=== PATIENT | female | born 1955 | race Caucasian/White ===

== ENCOUNTER → 2019-10-22 14:41 | Outpatient (CLI) | payer MEDICARE, SELFPAY ==
--- NOTE | ~2019-10-22 | XR_ITS ---
EXAMINATION: XR knee RT 3V DATE: 10/22/2019 15:00 INDICATION: Unspecified injury of right lower leg, initial encounter. Right knee pain. TECHNIQUE: 3 views of right knee were obtained. COMPARISON: None. FINDINGS: Bone alignment is normal. No fracture. There is mild osteoarthritis of medial and patellofe moral compartments. There is a small knee joint effusion. IMPRESSION: 1. Mild right knee osteoarthritis. 2. Small right knee joint effusion. Reviewed, dictated and finalized at location A. WELL OPERATOR
== END ==
PROVIDERS: PCP Family Medicine; Visit Provider Physician Assistant
DX: S89.91XA Unspecified injury of right lower leg, initial encounter (principal); X58.XXXA Exposure to other specified factors, initial encounter; M17.11 Unilateral primary osteoarthritis, right knee; M25.461 Effusion, right knee
CPT/HCPCS: 73562

== ENCOUNTER → 2019-10-30 10:36 | Outpatient (CLI) | payer MEDICARE, SELFPAY ==
--- NOTE | ~2019-10-30 | MR_ITS ---
EXAMINATION: MR knee RT wo con DATE: 10/30/2019 11:35 INDICATION: Right knee pain. Unspecified injury of right lower leg, initial encounter. TECHNIQUE: Magnetic resonance imaging (MRI) of the right knee was performed without intravenous contr ast. Sequences included axial PD-weighted FS FSE, coronal PD-weighted FSE and PD-weighted FS FSE, sag ittal PD-weighted FSE, and sagittal T2-weighted FS FSE. COMPARISON: Right knee radiographs 10/22/2019 FINDINGS: Medial compartment: There is a complex tear of posterior horn of medial meniscus. There is shallow partial-thickness cart ilage loss of tibial condyle and femoral condyle with mild subchondral edema-like marrow signal inten sity. Marginal osteophytes are noted. Lateral compartment: Lateral meniscus is normal. Lateral compartment cartilage is normal. Patellofemoral compartment: There is full-thickness cartilage loss of patellar median ridge and medial facet with mild subchondra l edema-like marrow signal intensity. There is partial-thickness cartilage loss of patellar lateral f acet. There is partial-thickness cartilage loss of central and medial trochlea with mild subchondral edema-like marrow signal intensity. Osteophytes are noted. Ligaments and tendons: The anterior and posterior cruciate ligaments are normal. There are changes of prior sprains of media l collateral ligament and fibular collateral ligament characterized by increased signal intensity pro ximally. There is mild patellar tendinopathy. Fluid: There is a small knee joint effusion. There is a large multiloculated Ann's cyst. There is mild sup erficial infrapatellar bursitis. IMPRESSION: 1. Severe chondrosis of patellofemoral compartment and mild chondrosis of medial compartment. 2. Tear of medial meniscus. 3. Small knee joint effusion. 4. Large multiloculated Ann's cyst. Reviewed, dictated and finalized at location A. DIVING TEACHER IMPRESSION: 1. Severe chondrosis of patellofemoral compartment and mild chondrosis of media l compartment. 2. Tear of medial meniscus. 3. Small knee joint effusion. 4. Large multiloculated Ann's cyst.
== END ==
PROVIDERS: PCP Family Medicine; Visit Provider Physician Assistant
DX: S83.241A Other tear of medial meniscus, current injury, right knee, initial encounter (principal); M25.461 Effusion, right knee; M71.21 Synovial cyst of popliteal space [Baker], right knee; X58.XXXA Exposure to other specified factors, initial encounter
CPT/HCPCS: 73721

== ENCOUNTER → 2019-11-02 07:49 | Outpatient (CLI) | payer MEDICARE, SELFPAY ==
--- NOTE | ~2019-11-02 | MMUS_ITS ---
. EXAMINATION: MM diagnostic yajaira RT w leander, US breast RT complete HISTORY: Probably benign right breast masses TECHNIQUE: ML, MLO and cc 3-D tomosynthesis images of the right breast were performed and synthetic 2 -D images were generated. CAD analysis was submitted and interpreted. High resolution complete right breast ultrasound was performed. COMPARISON: 05/04/2019 diagnostic right digital mammogram and limited right breast ultrasound 04/27/2019 bilateral digital screening mammogram 04/03/2018 bilateral digital screening mammogram BREAST PARENCHYMAL COMPOSITION: The breasts are heterogeneously dense, which may obscure small masses . FINDINGS: MAMMOGRAPHIC FINDINGS: There are scattered benign microcalcifications. No interval mass or developing density, architectural distortion, malignant calcification, skin thickening or retraction is detected. ULTRASOUND: 2:00 2 cm from nipple: 2 mm sonolucency without shadowing, benign in appearance 4:00 4 cm from nipple: Parallel circumscribed hypoechoic 2.4 x 6 mm hypoechoic lesion without interna l vascularity or posterior shadowing 6:00 3 cm from nipple: 3.5 x 3.6 x 5.2 mm simple cyst with through transmission and posterior enhance ment 8:00 5 cm from nipple: 2.7 x 3.4 x 4.3 mm simple cyst 9:00 7 cm from nipple: 4.5 x 5.4 simple cyst 9:00 7 cm from nipple: 3.1 x 3.5 mm simple cyst 10:00 7 cm from nipple: Parallel circumscribed septated 3 x 4.2 x 5 mm cyst No suspicious solid mass or shadowing is evident. IMPRESSION: 1. No mammographic evidence of malignancy 2. Routine mammographic screening is recommended BI-RADS Category 2: Benign finding(s). Reviewed, dictated and finalized at location A. ODIAGNOSTIC TECH IMPRESSION: 1. No mammographic evidence of malignancy 2. Routine mammographic screening is recommended BI-RADS Category 2: Benign finding(s).
== END ==
PROVIDERS: Visit Provider Obstetrics & Gynecology
DX: R92.8 Other abnormal and inconclusive findings on diagnostic imaging of breast (principal)
CPT/HCPCS: 76641; 77061; 77065; G0279

== ENCOUNTER → 2020-06-20 07:28 | Outpatient (CLI) | payer MEDICARE, SELFPAY ==
--- NOTE | ~2020-06-20 | MM_ITS ---
EXAMINATION: MM screening yajaira BI w leander HISTORY: Screening mammogram, family history of breast cancer in her mother. TECHNIQUE: Craniocaudal and mediolateral oblique 3-D tomosynthesis images were obtained and synthetic 2-D images were generated. CAD analysis was submitted and interpreted. COMPARISON: 11/02/2019, 05/04/2019, 04/27/2019, 04/03/2018 BREAST PARENCHYMAL COMPOSITION: The breasts are heterogeneously dense, which may obscure small masses . FINDINGS: Scattered benign-appearing calcifications are present. There is no evidence of suspicious m ass, calcification, or architectural distortion to suggest malignancy in either breast. There has bee n no suspicious interval change. IMPRESSION: 1. No mammographic evidence of malignancy. 2. Recommend routine screening mammography in one year. BI-RADS Category 2: Benign finding(s). Reviewed, dictated and finalized at location A.
== END ==
PROVIDERS: PCP Physician Assistant; Visit Provider Physician Assistant
DX: Z12.31 Encounter for screening mammogram for malignant neoplasm of breast (principal)
CPT/HCPCS: 77063; 77067

== ENCOUNTER → 2021-06-22 07:25 | Outpatient (CLI) | payer MEDICARE, SELFPAY ==
--- NOTE | ~2021-06-22 | MM_ITS ---
EXAMINATION: MM screening yajaira BI w leander HISTORY: Screening TECHNIQUE: Craniocaudal and mediolateral oblique 3-D tomosynthesis images were obtained and synthetic 2-D images were generated. CAD analysis was submitted and interpreted. COMPARISON: Comparison to multiple prior studies sequentially, with oldest reviewed study dated 08/24. BREAST PARENCHYMAL COMPOSITION: The breasts are heterogeneously dense, which may obscure small masses . FINDINGS: There is no evidence of suspicious mass, calcification, or architectural distortion to sugg est malignancy in either breast. There has been no suspicious interval change. IMPRESSION: 1. No mammographic evidence of malignancy. 2. Recommend routine screening mammography in one year. BI-RADS Category 1: Negative Reviewed, dictated and finalized at location A.
== END ==
PROVIDERS: PCP Family Medicine; Visit Provider Family Medicine
DX: Z12.31 Encounter for screening mammogram for malignant neoplasm of breast (principal)
CPT/HCPCS: 77063; 77067

== ENCOUNTER → 2022-08-20 10:55 | Outpatient (CLI) | payer MEDICARE, SELFPAY ==
--- NOTE | ~2022-08-20 | MM_ITS ---
EXAMINATION: MM screening yajaira BI w leander HISTORY: Screening mammogram, family history of breast cancer in her mother. TECHNIQUE: Craniocaudal and mediolateral oblique 3-D tomosynthesis images were obtained and synthetic 2-D images were generated. CAD analysis was submitted and interpreted. COMPARISON: 06/22/2021, 06/12/2020, 11/02/2019, 05/04/2019, 04/27/2019 BREAST PARENCHYMAL COMPOSITION: The breasts are heterogeneously dense, which may obscure small masses . FINDINGS: No suspicious mass, calcification, or architectural distortion are identified in either chi ast to suggest malignancy. There has been no suspicious interval change. IMPRESSION: 1. No mammographic evidence of malignancy. 2. Recommend routine screening mammography in one year. BI-RADS Category 1: Negative Reviewed, dictated and finalized at location A. IST STEROIDS
== END ==
PROVIDERS: PCP Family Medicine; Visit Provider Physician Assistant
DX: Z12.31 Encounter for screening mammogram for malignant neoplasm of breast (principal)
CPT/HCPCS: 77063; 77067

== ENCOUNTER 2023-08-29 14:51 | Outpatient (CLI) | payer MEDICARE, SELFPAY ==
--- NOTE | ~2023-08-29 | XR_ITS ---
EXAMINATION: XR foot LT min 3V DATE: 08/29/2023 15:14 INDICATION: Plantar left foot pain. Injury. TECHNIQUE: 4 views of left foot were obtained. COMPARISON: None. FINDINGS: Bone alignment is normal. No fracture. There is moderate osteoarthritis of first metatarsop halangeal joint. There is mild osteoarthritis of talonavicular joint. There is an enthesophyte at alana ntar aspect of calcaneal tuberosity. IMPRESSION: 1. Polyarticular osteoarthritis. Reviewed, dictated and finalized at location E. RER HELPER
== END 2023-08-29 14:52 | disposition home or self-care (01) ==
PROVIDERS: PCP Family Medicine; Visit Provider Family Medicine
DX: M79.672 Pain in left foot (principal); M15.9 Polyosteoarthritis, unspecified
CPT/HCPCS: 73630

== ENCOUNTER → 2023-10-14 11:39 | Outpatient (CLI) | payer MEDICARE, SELFPAY ==
--- NOTE | ~2023-10-14 | MM_ITS ---
EXAMINATION: MM screening yajaira BI w leander HISTORY: Screening mammogram, family history of breast cancer in her mother. TECHNIQUE: Craniocaudal and mediolateral oblique 3-D tomosynthesis images were obtained and synthetic 2-D images were generated. CAD analysis was submitted and interpreted. COMPARISON: 08/20/2022, 06/22/2021, 06/20/2020 BREAST PARENCHYMAL COMPOSITION: The breasts are heterogeneously dense, which may obscure small masses . FINDINGS: No suspicious mass, calcification, or architectural distortion are identified in either chi ast to suggest malignancy. There has been no suspicious interval change. IMPRESSION: 1. No mammographic evidence of malignancy. 2. Recommend routine screening mammography in one year. BI-RADS Category 1: Negative Reviewed, dictated and finalized at location A. ANET SPECIALIST
== END ==
PROVIDERS: PCP Family Medicine; Visit Provider Family Medicine
DX: Z12.31 Encounter for screening mammogram for malignant neoplasm of breast (principal)
CPT/HCPCS: 77063; 77067

== ENCOUNTER 2023-11-26 17:22 | Emergency (ER) | payer MEDICARE, SELFPAY ==
--- NOTE | 2023-11-26 17:27 | PC.NURSE ---
pt to desk, states she does not want to wait. advised to return if things get worse, states she will go to urgent care
== END 2023-11-26 17:48 | disposition left against medical advice (07) ==
LOC: ANHED 17:34
PROVIDERS: PCP Family Medicine
DX: Z53.21 Procedure and treatment not carried out due to patient leaving prior to being seen by health care provider (principal)
CPT/HCPCS: 99199

== ENCOUNTER 2023-12-23 00:12 | Day surgery (SDC) | payer MEDICARE, SELFPAY ==
[2023-12-12 14:35] VITALS: BMI 27.2
--- NOTE | 2023-12-20 09:18 | SUR.PREOP ---
Patient called regarding upcoming procedure. Reviewed preop instructions, appointment times, and procedure prep.
--- NOTE | ~2023-12-23 | XR_ITS ---
EXAMINATION: XR chest 1V portable DATE: 12/23/2023 08:26 INDICATION: Gastroesophageal reflux disease. TECHNIQUE: A single frontal view of the chest was obtained. COMPARISON: None. FINDINGS: There is no pneumonia, pleural effusion, or pneumothorax. The heart size is normal. IMPRESSION: 1. No acute cardiopulmonary disease. Reviewed, dictated and finalized at location A.
[2023-12-23 06:12] VITALS: BP 123/81; PULSE 83; RESP 16; TEMP 36.2; O2SAT 99
[2023-12-23] MEDS: LACTATED RINGERS 1,000 ML 150 ML IV CONT (06:24)
--- NOTE | 2023-12-23 07:13 | PM.HPGS ---
History of Present Illness History of Present Illness Consent: Risks, benefits, and alternatives have been discussed and questions answered. Patient agrees to proceed with procedure. Chief complaint: neoplasm screening,GERD Narrative: April Marmolejo is a 68 year old female with long standing GERD on omeprazole as needed, last egd and colonoscopy about 20 years ago Review of Systems Review of Systems: All systems reviewed & are unremarkable except as noted in HPI and below PMFSH Past Medical History Medical History (Updated 12/23/23 @ 07:14 by Chavez Graham MD) Colon cancer screening Family History Family History Father Family history of Alzheimer's disease Mother Family history of malignant neoplasm of breast in first degree relative Social History Social History Social History: Smoking status: Never smoker Second hand tobacco smoke exposure: No Alcohol intake: never Alcohol use details: Occasionally Substance use: never Substance use type: does not use Do You Feel Safe in your Home?: Yes Lack of Transportation: No Lack of Food: Never True Current Housing: I Have Housing Concerned About Future Housing: No Difficulty Paying Gas/Electric Bills: No Difficulty Paying for Meds: No Currently Unemployed: No Education: Don't Know Difficulty w/ Childcare or Family Care: No Living arrangements: with family Occupation/Education: occupation Gender identity (if verbalized by the patient): Female Sexual Orientation (if Verbalized by the Patient): Straight or Heterosexual Spiritual care concerns: No Meds Home Medications and Allergies Home Medications Medication Instructions Recorded Confirmed Type raloxifene 60 mg tablet (Evista) 60 mg PO DAILY 10/22/19 12/12/23 History omeprazole 20 mg tablet,delayed 20 mg PO DAILY #30 tabs 12/25/21 12/12/23 Rx release rosuvastatin 5 mg tablet 5 mg PO DAILY #90 tabs 04/24/23 12/12/23 Rx sertraline 25 mg tablet See Rx Instructions .Route 11/06/23 12/12/23 Rx .COMPLEX #90 tabs latanoprost 0.005 % eye drops 1 drp EACH EYE DAILY 12/12/23 12/12/23 History Allergies Allergy/AdvReac Type Severity Reaction Status Date / Time Penicillins Allergy Unknown Unknown Verified 12/23/23 06:11 Sulfa (Sulfonamide Allergy Unknown Unknown Verified 12/23/23 06:11 Antibiotics) Vital Signs Vital Signs - 24 hr 12/23/23 06:12 Temperature 97.2 F L Pulse Rate 83 Respiratory Rate 16 Blood Pressure 123/81 Pulse Oximetry 99 Oxygen Delivery Room Air Exam Const: General: comfortable and no acute distress HENMT: Face/Nose/Sinus: Normal nares present Eyes: General: appearance normal, both eyes and all related structures Neck: Neck: no JVD Resp: Auscultation: clear to auscultation bilaterally Cardio: Rate: regular rate Rhythm: regular rhythm GI: Inspection: non-distended GI Palp: Yes Soft to palpation Skin: General skin exam: normal color Neuro: General: gait normal Speech: normal speech Extrem: General: normal to inspection Psych: Mental Status: mental status grossly normal Assessment and Plan Assessment and plan (1) Gastroesophageal reflux disease: Code(s): K21.9 - Gastro-esophageal reflux disease without esophagitis Status: Acute Assessment and Plan: egd (2) Colon cancer screening: Code(s): Z12.11 - Encounter for screening for malignant neoplasm of colon Status: Acute Assessment and Plan: colonoscopy
--- NOTE | 2023-12-23 07:22 | WPDANESEPPF ---
Anes - Initial Pre Proc Eval Procedure: Operation Date: 12/23/23 07:30 Proposed Procedures p Esophagogastroduodenoscopy & Screening Colonoscopy - Chavez Graham MD Date/Time: 12/23/23 07:22 Surgeon: Chavez Graham MD Pre Op Diagnosis: neoplasm screening,GERD Patient Data Age: 68 Gender: F Height: 1.68 m Weight: 74.5 kg Last Vital Signs Temp 97.2 F L 12/23/23 06:12 Pulse 83 12/23/23 06:12 Resp 16 12/23/23 06:12 BP 123/81 12/23/23 06:12 Pulse Ox 99 12/23/23 06:12 O2 Del Method Room Air 12/23/23 06:12 Allergies Allergy/AdvReac Type Severity Reaction Status Date / Time Penicillins Allergy Unknown Unknown Verified 12/23/23 06:11 Sulfa (Sulfonamide Allergy Unknown Unknown Verified 12/23/23 06:11 Antibiotics) Home Medications Medication Instructions Recorded Confirmed Type raloxifene 60 mg tablet (Evista) 60 mg PO DAILY 10/22/19 12/12/23 History omeprazole 20 mg tablet,delayed 20 mg PO DAILY #30 tabs 12/25/21 12/12/23 Rx release rosuvastatin 5 mg tablet 5 mg PO DAILY #90 tabs 04/24/23 12/12/23 Rx sertraline 25 mg tablet See Rx Instructions .Route 11/06/23 12/12/23 Rx .COMPLEX #90 tabs latanoprost 0.005 % eye drops 1 drp EACH EYE DAILY 12/12/23 12/12/23 History Patient hx anesthesia problems: none Family hx anesthesia problems: none Results Review: All pre-operative results and documents have been reviewed as part of the pre-operative evaluation. [facility] Past Medical History Medical History (Updated 12/23/23 @ 07:14 by Chavez Graham MD) Colon cancer screening Family History Family History Father Family history of Alzheimer's disease Mother Family history of malignant neoplasm of breast in first degree relative Social History Social History Social History: Smoking status: Never smoker Second hand tobacco smoke exposure: No Alcohol intake: never Alcohol use details: Occasionally Substance use: never Substance use type: does not use Do You Feel Safe in your Home?: Yes Lack of Transportation: No Lack of Food: Never True Current Housing: I Have Housing Concerned About Future Housing: No Difficulty Paying Gas/Electric Bills: No Difficulty Paying for Meds: No Currently Unemployed: No Education: Don't Know Difficulty w/ Childcare or Family Care: No Living arrangements: with family Occupation/Education: occupation Gender identity (if verbalized by the patient): Female Sexual Orientation (if Verbalized by the Patient): Straight or Heterosexual Spiritual care concerns: No Anes - Eval Final PreProcedure Day of Procedure 12/23/23 07:22 Patient weight: normal Heart: regular rate and rhythm Lungs: clear to auscultation Airway: Mallampati scale class II Neurological: alert and oriented Last oral intake: >/= 8 hours ASA classification: II Emergent: no Anesthetic plan: proceed Anesthesia type and monitoring: general GIVS and standard monitoring Results Review: All pre-operative results and documents have been reviewed as part of the pre-operative evaluation. Informed Consent: The patient's anesthetic plan and its attendant risks and benefits were discussed with the patient/family/POA. Questions were solicited and answers provided to the satisfaction of the patient/family/POA.
--- NOTE | 2023-12-23 07:34 | SUR.OPER ---
EGD: [id number] Colon: Start 733
[2023-12-23 07:52] VITALS: BP 141/87; PULSE 107; RESP 23; O2SAT 92
[2023-12-23 08:02] VITALS: BP 134/84; PULSE 98; RESP 20; O2SAT 90
[2023-12-23 08:12] VITALS: BP 124/88; PULSE 96; RESP 21; O2SAT 95
--- NOTE | 2023-12-23 08:18 | SUR.PHASEII ---
CXR taken will wait for results before discharge
[2023-12-23 08:22] VITALS: BP 126/81; PULSE 97; RESP 22; O2SAT 93
--- NOTE | 2023-12-23 08:31 | SUR.PHASEII ---
DR. Lee in to speak with PT
[2023-12-23 08:32] VITALS: BP 125/73; PULSE 96; RESP 25; O2SAT 94
--- NOTE | 2023-12-23 08:51 | SUR.PHASEII ---
CXR results obtained DR. Lee stated OK for pt to go home, I instructed pt to seek medical attention if becomes symptomatic or fever
== END 2023-12-23 08:50 | disposition home or self-care (01) ==
PROVIDERS: PCP Family Medicine; Visit Provider Internal Medicine Gastroenterology
PROC: 0DJ08ZZ Inspection of Upper Intestinal Tract, Via Natural or Artificial Opening Endoscopic (ICD-10-PCS; CPT 43235; principal; 2023-12-23 07:30)
DX: Z12.11 Encounter for screening for malignant neoplasm of colon (principal); K57.30 Diverticulosis of large intestine without perforation or abscess without bleeding; K21.00 Gastro-esophageal reflux disease with esophagitis, without bleeding; K29.50 Unspecified chronic gastritis without bleeding; Z79.810 Long term (current) use of selective estrogen receptor modulators (SERMs); Z80.3 Family history of malignant neoplasm of breast
CPT/HCPCS: 43239; G0105; 71045; 88305; J0461; J2001; J2405; J2704; J7120

== ENCOUNTER 2024-12-23 10:33 | Outpatient (CLI) | payer MEDICARE, SELFPAY ==
--- NOTE | ~2024-12-23 | MM_ITS ---
EXAMINATION: MM screening yajaira BI w leander HISTORY: Screening TECHNIQUE: Craniocaudal and mediolateral oblique 3-D tomosynthesis images were obtained and synthetic 2-D images were generated. CAD analysis was submitted and interpreted. COMPARISON: Comparison to multiple prior studies sequentially, with oldest reviewed study dated 06/20. BREAST PARENCHYMAL COMPOSITION: Dense: The breasts are heterogeneously dense, which may obscure small masses FINDINGS: The right breast is stable without evidence for malignancy. There are developing asymmetrie s in the left breast centered in the upper outer quadrant there is an obscured mass centered in the u pper outer quadrant of the left breast. IMPRESSION: 1. Developing left breast mass and asymmetry. 2. Additional mammographic views and possible breast ultrasound are recommended. BI-RADS Category 0: Incomplete: Needs additional imaging evaluation. Reviewed, dictated and finalized at location A. IMPRESSION: 1. Developing left breast mass and asymmetry. 2. Additional mammographic views and possible breast ultrasound are recommended . BI-RADS Category 0: Incomplete: Needs additional imaging evaluation.
== END 2024-12-23 10:34 | disposition home or self-care (01) ==
LOC: MICIMG 10:34
PROVIDERS: PCP Family Medicine; Visit Provider Family Medicine
DX: Z12.31 Encounter for screening mammogram for malignant neoplasm of breast (principal); R92.8 Other abnormal and inconclusive findings on diagnostic imaging of breast
CPT/HCPCS: 77063; 77067

== ENCOUNTER 2025-01-07 08:09 | Outpatient (CLI) | payer MEDICARE, SELFPAY ==
--- NOTE | ~2025-01-07 | MMUS_ITS ---
EXAMINATION: MM diagnostic yajaira LT w leander, US breast LT limited HISTORY: Follow-up left breast asymmetries TECHNIQUE: Additional 3-D tomosynthesis images of the left breast were performed and synthetic 2-D im ages were generated. CAD analysis was submitted and interpreted. High resolution Limited left breast ultrasound was performed. COMPARISON: Comparison to multiple prior studies sequentially, with oldest reviewed study dated 11/02. BREAST PARENCHYMAL COMPOSITION: Dense: The breasts are heterogeneously dense, which may obscure small masses FINDINGS: MAMMOGRAPHIC FINDINGS: There are persistent asymmetries centered in the upper outer quadrant of the left breast obscured by fibroglandular tissue. There are no suspicious calcifications or architectural distortion. ULTRASOUND: Limited left breast ultrasound: At 2:00, 5 cm from the nipple there is a 6 mm cyst. At 2:00, 4 cm fro m the nipple there is an 11 mm cyst. No suspicious masses to suggest malignancy. IMPRESSION: 1. No evidence for malignancy in the left breast. Benign findings. 2. Routine yearly screening mammogram and regular clinical breast examination are recommended. BI-RADS Category 2: Benign finding(s). Reviewed, dictated and finalized at location [] IMPRESSION: 1. No evidence for malignancy in the left breast. Benign findings. 2. Routine yearly screening mammogram and regular clinical breast examination a re recommended. BI-RADS Category 2: Benign finding(s).
== END 2025-01-07 08:10 | disposition home or self-care (01) ==
LOC: MICIMG 08:10
PROVIDERS: PCP Family Medicine; Visit Provider Physician Assistant
DX: R92.8 Other abnormal and inconclusive findings on diagnostic imaging of breast (principal)
CPT/HCPCS: 76642; 77061; 77065; G0279

== ENCOUNTER 2025-04-30 08:41 | Outpatient (CLI) | payer MEDICARE, SELFPAY ==
--- NOTE | ~2025-04-30 | CT_ITS ---
EXAMINATION: CT chest abdomen pelvis wo con DATE: 04/30/2025 9:03 CDT INDICATION: Abnormal weight loss. Constipation. TECHNIQUE: Computed tomography (CT) of the chest, abdomen, and pelvis was performed without intraveno us contrast. The dose-length product was 357.32 mGy-cm. Automated exposure control and iterative jeovany nstruction technique were employed. COMPARISON: CT dated 08/18/2013 FINDINGS: Chest/abdomen/pelvis CT: There are multiple hypodense masses of the liver involving both right and left hepatic lobes, consist ent with metastatic disease until proven otherwise. There is probable portacaval lymph node enlargeme nt, although evaluation limited due to lack of contrast. There is 2.5 cm hypodense mass of the pancre atic tail, suspicious for adenocarcinoma. The spleen, adrenal glands and right kidney are unremarkabl e. There is mild left renal caliectasis. Small mineral free fluid in the pelvis. There are increased number of mesenteric lymph nodes with omental nodularity and associated small volume of ascites vargas rning for peritoneal carcinomatosis. Focal sclerotic lesions present in the pelvis as well as T1 and L4 vertebral bodies concerning for me tastatic disease. No bowel obstruction. IMPRESSION: 1. Multiple hypodense masses of the liver most consistent with metastatic disease. 2: Pancreatic tail mass measuring 2.5 cm, highly suspicious for primary pancreatic adenocarcinoma. Di fferential diagnosis includes primary pancreatic adenocarcinoma and less likely considerations such a s neuroendocrine tumor of the pancreas, lymphoma and metastatic gastric or colon carcinoma. 3: Mesenteric and periaortic lymphadenopathy, omental nodularity and ascites suggests peritoneal carc inomatosis. 4: Focal sclerotic lesions of the pelvis and spine suspicious for osseous metastatic involvement. 5: Probable portacaval and left periaortic lymphadenopathy in keeping with mireya metastatic spread. Reviewed, dictated and finalized at location A. IMPRESSION: 1. Multiple hypodense masses of the liver most consistent with metastatic disea se. 2: Pancreatic tail mass measuring 2.5 cm, highly suspicious for primary pancrea tic adenocarcinoma. Differential diagnosis includes primary pancreatic adenocar cinoma and less likely considerations such as neuroendocrine tumor of the pancr eas, lymphoma and metastatic gastric or colon carcinoma. 3: Mesenteric and periaortic lymphadenopathy, omental nodularity and ascites pinto ggests peritoneal carcinomatosis. 4: Focal sclerotic lesions of the pelvis and spine suspicious for osseous meta static involvement. 5: Probable portacaval and left periaortic lymphadenopathy in keeping with lupe l metastatic spread.
--- OUTSIDE RECORDS SUMMARY | 2025-04-30 08:50 | XMS_ITS | Clinical Summary ---
Author Organization [facility] 2 Address [address] [place] [address] Care Team Providers Care Flame Degreaser Name Role Phone Christ Wesley MD Primary Care Provider Allergies Active Allergy Reactions Criticality Noted Date Comments Penicillins Rash Medium 10/02/2012 Sulfa (Sulfonamide Antibiotics) Rash Medium 03/03/2019 Medications latanoprost (XALATAN) 0.005 % ophthalmic solution Active sertraline (ZOLOFT) 25 mg tablet Active simvastatin (ZOCOR) 10 mg tablet Active cholecalciferol (VITAMIN D-3) 2000 unit capsule 1 capsule (2,000 Units total) Active rosuvastatin (CRESTOR) 5 mg tablet 10/07/2023 Active raloxifene (EVISTA) 60 mg tablet Take 1 tablet (60 mg total) by mouth daily 90 tablet 3 08/06/2024 Active Active Problems Problem Noted Date Diagnosed Date Acid reflux 11/26/2023 Acute urinary tract infection 11/26/2023 Anxiety 11/26/2023 Atrophic vaginitis 11/26/2023 Herpes zoster 11/26/2023 Hyperlipidemia 11/26/2023 Insomnia 11/26/2023 Malaise and fatigue 11/26/2023 Motion sickness 11/26/2023 Upper respiratory infection 11/26/2023 Vulvitis 11/26/2023 Vitamin D deficiency 10/08/2013 Osteopenia 09/07/2013 Overview (08/06/2024): Ms. Marmolejo is here for follow-up on her osteopenia and is currently taking calcium 1200 mg per day, vitamin D approx 3000 units per day, and raloxifene. Prior to that she received IV Reclast in 12/05 and 12/06. Her bone density did worsen when she stopped medication from 2017-. She also previously received 5 years of oral bisphosphonate medications including Actonel and Fosamax and stopped these in 2010. She currently does stay physically active participating in her activities of daily living but she's has little scheduled exercise other than walking 30-40 minutes a few times per week. She's had 0 falls or fractures in the past year. No back pain nor scoliosis. Assessment & Plan (08/17/2024 6:52 PM NURSE ADMINISTRATOR): Ms. MARMOLEJO is currently being treated for osteoporosis with calcium 1200 mg per day, vitamin D 3,000 IU per day and raloxifene and her bone density is improved in the spine over the past year. I'd like to get an xray of her lumbar spine because of what appears to be arthritic changes at the level of L2. For her treatment she should continue calcium and vitamin D and raloxifene Assessment & Plan (08/02/2022 2:46 PM NURSE ADMINISTRATOR): Ms. MARMOLEJO is currently being treated for osteoporosis with calcium 1200 mg per day, vitamin D 3,000 IU per day and raloxifene and her bone density is stable over the past year. For her treatment she should continue calcium and vitamin D and raloxifene. Assessment & Plan (07/20/2021 1:42 PM CDT): Ms. MARMOLEJO is currently being treated for osteoporosis with calcium 1200 mg per day, vitamin D 3,000 IU per day and raloxifene and her bone density improved over the past year. For her treatment she should continue calcium and vitamin D and raloxifene. Assessment & Plan (07/07/2020 4:24 PM CDT): Ms. MARMOLEJO is currently being treated for osteoporosis with calcium 1200 mg per day, vitamin D 3,000 IU per day and raloxifene and her bone density improved in her spine and hip over the past year. For her treatment she should continue calcium and vitamin D and raloxifene. Assessment & Plan (11/27/2018 10:15 AM NURSE ADMINISTRATOR): Ms. MARMOLEJO is currently being treated for osteoporosis with calcium 1200 mg per day, vitamin D 1,600 IU per day and her bone density worsened in her spine after she was on a drug holiday over the past year. For her treatment she should continue calcium and vitamin D and I would like to see if we are able to stabilize her bone density by putting her back on the raloxifene. If she continues to worsen next year I'll redose her IV Reclast. For her leg length discrepancy, I've asked her to consider a left leg lift. Immunizations Immunization Administration Dates Next Due Hep A / Hep B 10/23/2017 Hep A, Adult 02/28/2017 Hep B Vaccine 03/25/2017 Influenza, Quadrivalent, Hig h Dose, Preservative Free, Intrr 07/17/2020 Influenza, Quadrivalent, Spl it, Preservative Free, Intramuscular 09/29/2018 Influenza, Trivalent, High D ose, Split, Preservative Free, Intramuscular 06/27/2019 Influenza, Trivalent, IM (MDV) 07/23/2016,2014 Influenza, Trivalent, Preservative Free, Intramu scular 10/23/2017,08/25/2015 Pneumococcal Conjugate PCV 13 06/27/2019 Pneumococcal Polysaccharide PPV23 07/17/2020 Tdap 01/07/2017,09/23/1999 ZOSTER LIVE 02/01/2017 ZOSTER Recombinant 05/20/2019,03/18/2019 Family History Medical History Relation Name Comments Osteoporosis Mother Family history of osteoporosis - (Added by TW Conv) Osteoporosis Other 1 Family history of osteoporosis - Relation: Grandmother (Added by TW Conv) Osteoporosis Other 2 Family history of osteoporosis - (Added by TW Conv) Relation Name Status Comments Mother Other 1 Other 2 Social History Tobacco Use Types Packs/Day Years Used Date Smoking Tobacco: Never Smokeless Tobacco: Never Tobacco Cessation:Counseling Given: Not Answered Comments Unknown Sex and Gender Information Value Date Recorded Sex Assigned at Not on file Legal Sex Female 9:06 AM NURSE ADMINISTRATOR Gender Identity Female 11/27/2018 8:55 AM NURSE ADMINISTRATOR Sexual Orientation Straight 07/13/2021 6: 23 PM CDT Obstetrics History Last Filed Vital Signs Vital Sign Reading Time Taken Comments Blood Pressure 142/81 11/26/2023 6:02 PM NURSE ADMINISTRATOR Pulse 83 11/26/2023 6:02 PM NURSE ADMINISTRATOR Temperature 36.9 C (98.5 F) 11/26/2023 6:02 PM NURSE ADMINISTRATOR Respiratory Rate 16 11/26/2023 6:02 PM NURSE ADMINISTRATOR Oxygen Saturation 98% 11/26/2023 6:02 PM NURSE ADMINISTRATOR Inhaled Oxygen Concentration - - Weight 75.3 kg (166 lb) 08/06/2024 10:12 AM NURSE ADMINISTRATOR Height 167 cm (5' 5.75) 08/06/2024 10:12 AM NURSE ADMINISTRATOR Body Mass Index 27 08/06/2024 10:12 AM NURSE ADMINISTRATOR Plan of Treatment Health Maintenance Due Date Last Done Comments Breast Cancer Screening-Mammogram 1955 Colon Cancer Screening-Colonoscopy 1955 Depression Screening 1955 Fall Risk Assessment 1955 Hepatitis C Screening 1955 Well Visit 65+ 2019 Covid-19 Vaccine (3 - 2023-2 5 season) 2024 12/10/2020, 11/18/2020 Influenza Vaccine (#1) 2025 , 06/27/2019, 09/29/2018, Additional history exists Osteoporosis Screening-Bone Density Scan 08/06/2026 08/06/2024, 08/02/2022, 07/20/2021, Additional history exists DTaP/Tdap/Td Vaccine (4 - Td or Tdap) 11/25/2033 11/26/2023, 01/07/2017, 09/23/1999 Hepatitis B Screening Completed 10/23/2017, 017 Zoster Vaccine Completed 05/20/2019, 02/22, 02/01/2017 Pneumococcal vaccine 65+ Completed 07/17/2020, 01/2019 Procedures Procedure Name Priority Date/Time Associated Diagnosis Comments DEXA TBS AXIAL SKELETON BONE DENSITY 1 OR MORE SITES Schedule Routine, Read Routine (OP Routine) 08/06/2024 10:13 AM NURSE ADMINISTRATOR Age-related osteoporosis without current pathological fracture from Last 3 Months or Most Recently Relevant to Health Maintenance Results * Dexa TBS Axial Skeleton Bone Density 1 or more sites (08/06/2024 10:13 AM NURSE ADMINISTRATOR) Anatomical Region Laterality Modality Wrist, Body N/A Radiographic Jaja ging Narrative 08/06/2024 3:34 PM NURSE ADMINISTRATOR Patient Name: April Marmolejo Date of : 1955 Date of scan: 08/06/2024 Bone mineral density was performed on a [employer] Discovery Densitometer. Based on machine cross-calibration and precision studies the least significant changes of this densitometer is 0.024 g/cm2 at the spine, 0.020 g/cm2 at the total proximal femur, and 0.014g/cm2 at the forearm. HISTORY: This is a 69 y.o. postmenopausal female with a history of low bone mass. She reports that she has never smoked. She has never used smokeless tobacco. Currently on treatment with vitamin D and raloxifene (Evista) and previously treated with risedronate (Actonel), zoledronic acid (Reclast), and hormone replacement therapy. INDICATIONS: Menopause status, treatment monitoring, and history of low bone mass. FINDINGS: BONE MINERAL DENSITY OF THE LUMBAR SPINE Bone Mineral Density (BMD) of the lumbar spine was measured from L1, L3-L4 and the average density was calculated to be 0.945 gm/cm2. This corresponds to a T-score (standard deviations from the mean of young adults) of -1.0. When compared to the previous study of 08/02/2022 there has been a 0.078 gm/cm (9.0%) increase in bone density that is considered significant. BONE MINERAL DENSITY OF THE PROXIMAL FEMUR Bone Mineral Density (BMD) of the left hip total was found to be 0.765 gm/cm2. This corresponds to a T-score standard deviations from the mean of young adults of -1.4. Femoral neck is 0.754 gm/cm2 with a T-score (standard deviations from the mean of young adults) of -0.9. When compared to the previous study of 08/02/2022 there has been no significant changes in bone density. SUMMARY: Bone mineral density shows evidence of low bone mass at the proximal femur and moderately increased fracture risk (Osteopenia). There has been a significant increase in bone density since previous measurement. L2 excluded from bone mineral density analysis of the lumbar spine due to bone density being more than 1 standard deviation discrepant relative to one adjacent vertebra. Clinical correlation is recommended. ADDITIONAL COMMENTS: Postmenopausal Women and Men Over 50: Diagnostic criteria: Osteoporosis: BMD at or below -2.5 T-score; Osteopenia (low bone mass): BMD between -1.0 and -2.5 T-score. If the patient has a history of a fragility fracture, a fracture that occurred with trauma equivalent to a fall from a standing position or less, then the diagnosis is osteoporosis regardless of bone density. The history and data sections of the bone mineral density scan were prepared by Janis Pineda (R)(CBDT) who is accredited by the International Society of Clinical Densitometry. The overall patient assessment and scan interpretation were performed by Lakshmi Mccallum M.D. who is certified by the International Society of Clinical Densitometry. [id number] Lakshmi Mccallum MD IMG DXA PROCEDURES Final Re sult from Last 3 Months or Most Recently Relevant to Health Maintenance Insurance [employer] MEDICARE PPO [employer] MEDICARE PPO Care Teams Flame Degreaser Relationship Specialty Start Date End Date Christ Wesley MD [address] [place], [place] [id number] PCP - General Family Medicine 11/27/18
--- OUTSIDE RECORDS SUMMARY | 2025-04-30 08:50 | XMS_ITS | Clinical Summary ---
Author Organization [facility] Address [address] [place] [id number] Care Team Providers Care Driver Messenger Name Role Phone Christ Wesley MD Primary Care Provider [phone] Allergies Active Allergy Reactions Criticality Noted Date Comments Penicillins Unknown 11/26/2023 Sulfa Antibiotics Unknown 11/26/2023 Immunizations Immunization Administration Dates Next Due Tdap (Boostrix) 11/26/2023 Social History Tobacco Use Types Packs/Day Years Used Date Smoking Tobacco: Never Smokeless Tobacco: Never Tobacco Cessation:Counseling Given: Not Answered Alcohol Use Standard Drinks/Week Comments Never 0 (1 standard drink = 0.6 oz pur e alcohol) Comments Unknown Sex and Gender Information Value Date Recorded Sex Assigned at Not on file Legal Sex Female 6:53 PM REMEDIATION CONSULTANT Gender Identity Not on file Sexual Orientation Not on file Last Filed Vital Signs Vital Sign Reading Time Taken Comments Blood Pressure 148/72 11/26/2023 7:03 PM REMEDIATION CONSULTANT Pulse 87 11/26/2023 7:03 PM REMEDIATION CONSULTANT Temperature 36.7 C (98 F) 11/26/2023 7:03 PM REMEDIATION CONSULTANT Respiratory Rate 16 11/26/2023 7:03 PM REMEDIATION CONSULTANT Oxygen Saturation 100% 11/26/2023 7:03 PM REMEDIATION CONSULTANT Inhaled Oxygen Concentration - - Weight 76.2 kg (168 lb) 11/26/2023 7:03 PM REMEDIATION CONSULTANT Height 167.6 cm (5' 6) 11/26/2023 7:03 PM REMEDIATION CONSULTANT Body Mass Index 27.12 11/26/2023 7:03 PM REMEDIATION CONSULTANT Plan of Treatment Health Maintenance Due Date Last Done Comments Colorectal Cancer Screening Colonoscopy (10 Years) 1955 Hepatitis C 1972 Mammogram Screening 1994 Annual Medicare Wellness Visit 2019 COVID-19 Vaccine (3 2023-2 5 season) 2024 12/10/2020, 11/18/2020 RSV Immunization or 60+ Years (1 - 1-dose 75+ series) 2029 DTaP, Tdap and Td Vaccines ( 4 - Td or Tdap) 11/25/2033 11/26/2023, 01/07/2017, 09/23/1999 Zoster Vaccines Completed 05/20/2019, 03/18/2019, 02/01/2017 Pneumococcal Vaccine: 50+ Years Completed 07/17/2020, 06/27/2019 Dexa Scan (General) Completed 08/02/2022 Meningococcal B Vaccine Aged Out No l onger eligible based on patient's age to complete this topic Meningococcal Vaccine Aged Out No valdez arvin eligible based on patient's age to complete this topic RSV Immunizations Under 20 Months Aged Out No longer eligible b ased on patient's age to complete this topic Insurance [facility] Care Teams Driver Messenger Relationship Specialty Start Date End Date Christ Wesley MD [address] [place] [address] PCP - General FAMILY PRACTICE 11/26/23
== END 2025-04-30 08:42 | disposition home or self-care (01) ==
LOC: ANHIMG 08:44
PROVIDERS: PCP Family Medicine
DX: K76.89 Other specified diseases of liver (principal); K86.89 Other specified diseases of pancreas; R59.0 Localized enlarged lymph nodes; R18.8 Other ascites; M89.8X8 Other specified disorders of bone, other site; R63.4 Abnormal weight loss
CPT/HCPCS: 71250; 74176

== ENCOUNTER 2025-05-31 07:46 | Emergency (ER) | payer MEDICARE, SELFPAY ==
[2025-05-31] VITALS (22 sets, daily range): BP systolic 108–129; BP diastolic 46–74; PULSE 95–114; RESP 17–32; TEMP 36.6–37.1; O2SAT 80–100
--- NOTE | ~2025-05-31 | CT_ITS ---
EXAMINATION: CT abdomen pelvis w con DATE: 05/31/2025 11:07 INDICATION: Abdominal pain TECHNIQUE: Computed tomography (CT) of the abdomen and pelvis was performed with 100 mL Omnipaque-350 intravenous contrast. Automated exposure control and iterative reconstruction technique were employed. The dose-length product was 383.35 mGy-cm. COMPARISON: CT dated 04/30/2025 FINDINGS: Again seen are several subcentimeter nodules scattered throughout the bilateral lower lungs, the 2 largest each measuring 9 x 7 mm in the superior segments of both the left and right lower lobes which remain concerning for metastatic disease. Mild compressive atelectasis along the elevated right hemidiaphragm. Heart size is normal. No pericardial effusion. There are multiple hypoenhancing masses scattered throughout the liver measuring up to 7.2 cm consistent with metastatic disease. There is a 6.7 x 3.6 similar hypoenhancing mass in the body and tail of the pancreas suspicious for acute pancreatic cancer. Gallbladder, spleen and right adrenal gland are normal. 1 cm left adrenal nodule which could be either an adenoma or metastatic disease. Bilateral renal cysts including multiple parapelvic cysts at the left kidney. No bowel obstruction. Moderate amount of ascites scattered throughout the abdomen and pelvis with increased density in the cul-de-sac suggesting hemoperitoneum or other complex ascites. The uterus is not identified and has likely been surgically resected. There is nodularity along the greater omentum as well as in the deep pelvis along the vaginal cuff consistent with peritoneal carcinomatosis. 3 x 2 cm heterogeneously enhancing left perinephric lymph nodes consistent with metastatic disease. Severe lumbar and mild thoracic spondylosis. Multiple sclerotic lesions in the pelvis the majority of which are relatively dense and been present since 2012 favoring bone islands although a few are new including a less dense lesion at the right S1 sacral ala and could not exclude osseous metastatic disease. IMPRESSION: 1. Constellation of findings suggestive of primary pancreatic cancer with hepatic, pulmonary, retroperitoneal and omental/peritoneal metastatic disease potentially also some osseous metastatic disease. 2. Moderate amount of complex ascites with increased density in the cul-de-sac which could be due to malignant ascites, hemoperitoneum or peritonitis. Reviewed, dictated and finalized at location A. IMPRESSION: 1. Constellation of findings suggestive of primary pancreatic cancer with hepat ic, pulmonary, retroperitoneal and omental/peritoneal metastatic disease potent ially also some osseous metastatic disease. 2. Moderate amount of complex ascites with increased density in the cul-de-sac which could be due to malignant ascites, hemoperitoneum or peritonitis.
--- NOTE | 2025-05-31 07:54 | ECG_ITS ---
Test Date: 2025-05-31 07:54:23 Measurements Intervals [place] Rate: 102 P: 16 FL: 127 QRS: 49 QRSD: 86 T: -39 QT: 330 QTc: 431 Interpretive Statements SINUS TACHYCARDIA LOW QRS VOLTAGE IN PRECORDIAL LEADS [QRS DEFLECTION < 1.0 mV IN CHEST LEADS] ST DEVIATION AND MODERATE T-WAVE ABNORMALITY, CONSIDER ANTEROLATERAL ISCHEMIA [-0.1+ mV T-WAVE IN V3-V6] ABNORMAL ECG No previous ECG available for comparison Electronically Signed On 06-02-2025 15:16:23 CDT by Elvin Walter M.D.
--- OUTSIDE RECORDS SUMMARY | 2025-05-31 07:55 | XMS_ITS | Encounter Summary ---
Author Organization [facility] Address [address] [place] [address] Phone Care Team Providers Care Cleaning Handyman Name Role Phone Christ Wesley MD Primary Care Provider Mg Hernandes MD Unavailable [phone] Sonia Escamilla MD Unavailable [phone] Reason for Referral * Consultation (Routine) - Authorized Specialty Diagnoses / Procedures Referred By Fernando salazar Referred To Contact Oncology Diagnoses Pancreatic mass Pancreatic adenocarcinoma (HCC) Mg Hernandes MD [address] [place] [address] Phone: tel: fax: [facility] Medicine Oncology [facility] Floor [address] [place] [address] Phone: tel: fax: Referral ID Status Reason Start Date Expiration Date Visits Requested Visits Authorized [id number] Authorized Specialty Services Required 05/26/2025 06/25/2026 99 99 Question Answer Please select the performing region: [facility] (All Locations) [[id number]] Please select the performing department: [facility] ONC ACB5 [[phone]] Is this referral for Breast Health Multi-Disciplinary Clinic? No Does the patient have a diagnosis of a Head and Neck cancer? No # of visits: 1 Comments Panc bx adenocarcinoma Encounter Details Date Type Department Care Team (Late st Contact Info) Description 05/26/2025 Results Follow-Up [facility] Medicine Gastroenterology [address] [place] [address] Mg Hernandes MD [address] [place] [address] Surgical pathology Social History Tobacco Use Types Packs/Day Years Used Date Smoking Tobacco: Never Smokeless Tobacco: Never Alcohol Use Standard Drinks/Week Comments Yes 0 (1 standard drink = 0.6 oz pur e alcohol) AUDIT-C Answer Date Recorded Q1: How often do you have a drink containing alc ohol? Monthly or less 05/19/2025 Q2: How many drinks containi ng alcohol do you have on a typical day when you are drinking? 1 or 2 05/19/2025 Q3: How often do you have si x or more drinks on one occasion? Never 05/19/2025 Personal Safety Answer Date Recorded Have you ever been in or are you currently in a harmful physical or emotional relationship or is someone making you feel afraid or unsafe? Denies 05/19/2025 Comments Unknown Sex and Gender Information Value Date Recorded Sex Assigned at Not on file Legal Sex Female 9:06 AM ELDERLY SITTER Gender Identity Female 11/27/2018 8:55 AM ELDERLY SITTER Sexual Orientation Straight 07/13/2021 6: 23 PM CDT documented as of this encounter Plan of Treatment Scheduled Referrals Name Type Priority Associated Diagnoses Orde r Schedule Ambulatory referral to Oncology Outpatient Referral Routine Pancreatic mass Pancreatic adenocarcinoma (HCC) Expected: 07/26/2025 (Approximate), Expires: 05/26/2026 documented as of this encounter Visit Diagnoses Diagnosis Pancreatic mass- Primary Unspecified disease of pancreas Pancreatic adenocarcinoma (HCC) Malignant neoplasm of pancreas, part unspecified documented in this encounter Care Teams Cleaning Handyman Relationship Specialty Start Date End Date Christ Wesley MD [address] [facility] [address] [address] [address] PCP - General Family Medicine 11/27/18 Mg Hernandes MD [address] [place] [address] Consulting Physician Internal Medicine 05/27/25 Sonia Escamilla MD [address] [place] [address] Consulting Physician Medical Oncology 05/27/25 documented as of this encounter
--- OUTSIDE RECORDS SUMMARY | 2025-05-31 07:55 | XMS_ITS | Clinical Summary ---
Author Organization [facility] 2 Address [address] [place] [address] Care Team Providers Care Book Retailer Name Role Phone Christ Wesley MD Primary Care Provider Mg Hernandes MD Unavailable [phone] Sonia Escamilla MD Unavailable [phone] Allergies Active Allergy Reactions Criticality Noted Date Comments Penicillins Rash Medium 10/02/2012 Sulfa (Sulfonamide Antibiotics) Rash Medium 03/2019 Medications latanoprost (XALATAN) 0.005 % ophthalmic solution [...] Active Problems Problem Noted Date Diagnosed Date Pancreatic mass 05/11/2025 Acid reflux 11/26/2023 Acute urinary tract infection [...] scoliosis. Assessment & Plan (08/17/2024 6:52 PM GAS WELDER): Ms. MARMOLEJO is currently being treated for [...] raloxifene Assessment & Plan (08/02/2022 2:46 PM GAS WELDER): Ms. MARMOLEJO is currently being treated for [...] raloxifene. Assessment & Plan (11/27/2018 10:15 AM GAS WELDER): Ms. MARMOLEJO is currently being treated for [...] her to consider a left leg lift. Encounters Date Type Department Care Team Description 05/27/20 Telephone [facility] Medicine Oncology [address] Floor 5 [place] [address] Nikky Malagon 05/26/20 Results Follow-Up [facility] Medicine Gastroenterology [address] 2nd Floor [address] [place] [address] Mg Hernandes MD Surgical pathology 05/19/20 25 12:02 PM CDT Anesthesia Event [facility] Endoscopy [id number] [place] [address] [address] Grant Muhammad MD 05/19/20 25 11:45 AM CDT - 05/19/20 25 12:15 PM CDT Surgery [facility] Endoscopy [id number] [place] [address] [address] Mg Hernandes MD ESOPHAGOGASTRODUODENOSCOPY ULTRASOUND FINE NEEDLE ASPIRATION/BIOPSY 05/19/20 25 10:25 AM CDT - 05/19/20 25 1:48 PM CDT Hospital Encounter [facility] Endoscopy [address] [place] [address] Mg Hernandes MD Pancreatic mass Discharge Disposition: Discharge to home or self care 05/14/20 25 10:56 AM CDT - 05/14/20 11:59 PM CDT Hospital Encounter [facility] [address] [place] [address] Diagnosis unknown Discharge Disposition: Discharge to home or self care 05/11/20 25 Telephone [facility] Gastroenterology [address] [facility] [address] [place] [id number] Tina Liu LPN GI Preprocedure 05/07/20 25 Telephone [facility] Medicine Surgery [address] Floor 8 [place] [phone] Yanique Cosme MD Medical Question/Miscellaneous 05/07/20 25 Telephone [facility] [address] [place] [address] Leslie Mohan, RN FOLLOW UP ON REFERRAL 04/30/20 25 Orders Only [facility] Scanning, Provider from Last 3 Months Immunizations Immunization Administration Dates Next Due Hep [...] 01/07/2017,09/23/1999 ZOSTER LIVE 02/01/2017 ZOSTER Recombinant 05/20/2019,03/18/2019 Surgical History Surgery Date Site/Laterality Comments UPPER GASTROINTESTINAL ENDOSCOPY COLONOSCOPY HYSTERECTOMY MENISCUS SURGERY 09/23/2019 - 09/22/2020 Right Medical History Medical History Date Comments Hyperlipidemia Glaucoma Chronic diarrhea Chronic constipation Fibroid Depression Anxiety Family History Medical History Relation Name Comments [...] Not Answered Alcohol Use Standard Drinks/Week Comments Yes 0 [...] on file Legal Sex Female 9:06 AM GAS WELDER Gender Identity Female 11/27/2018 8:55 AM GAS WELDER Sexual Orientation Straight 07/13/2021 6: 23 PM CDT Obstetrics History Last Filed Vital Signs Vital Sign Reading Time Taken Comments Blood Pressure 111/64 05/19/2025 1:15 PM CDT Pulse 82 05/19/2025 1:15 PM CDT Temperature 36.6 C (97.9 F) 05/19/2025 12:25 PM CDT Respiratory Rate 16 05/19/2025 1:15 PM CDT Oxygen Saturation 97% 05/19/2025 1:15 PM CDT Inhaled Oxygen Concentration - - Weight 62.1 kg (137 lb) 05/19/2025 10:50 AM CDT Height 165.1 cm (5' 5) 05/19/2025 10:50 AM CDT Body Mass Index 22.8 05/19/2025 10:50 AM CDT Plan of Treatment Health Maintenance Due Date Last Done Comments Breast Cancer Screening-Mammogram 1955 Colon Cancer Screening-Colonoscopy 1955 Depression Screening 1955 Hepatitis C Screening 1955 Well Visit 65+ 2019 Covid-19 Vaccine (3 2024-2 6 season) 2025 12/10/2020, 11/18/2020 Influenza Vaccine (#1) 2025 , 06/27/2019, 09/29/2018, Additional history exists Fall Risk Assessment 05/19/2026 05/19/2025 Osteoporosis Screening-Bone Density Scan 08/06/2026 08/06/2024, 08/02/2022, 07/20/2021, Additional history exists DTaP/Tdap/Td Vaccine (4 - Td or Tdap) 11/25/2033 11/26/2023, 01/07/2017, 09/23/1999 Hepatitis B Screening Completed 10/23/2017 , 03/25/2017, 02/28/2017 Zoster Vaccine Completed 05/20/2019, 02/22, 02/01/2017 Pneumococcal vaccine 65+ Completed 07/17/2020, 01/2019 Procedures Procedure Name Priority Date/Time Associated Diagnosis Comments US ENDOSCOPIC IP Routine 05/19/2025 12:24 PM CDT Pancreatic mass SURGICAL PATHOLOGY Routine 05/19/2025 12 :21 PM CDT Pancreatic mass UPPER EUS 05/19/2025 11:[address] BODY OUTSIDE CONSULT Routine 05/14/2025 10:57 AM CDT Diagnosis unknown SCAN - RADIOLOGY/IMAGING 04/30/2025 DEXA TBS AXIAL SKELETON BONE DENSITY 1 OR MORE SITES Schedule Routine, Read Routine (OP Routine) 08/06/2024 10:13 AM GAS WELDER Age-related osteoporosis without current pathological fracture from Last 3 Months or Most Recently Relevant to Health Maintenance Results * Surgical pathology (05/19/2025 12:21 PM CDT) Tissue (Pancreas, Biopsy) 05/19/2025 12:21 PM CDT Narrative PATHOLOGY [facility] - 05/20/2025 5:43 PM CDT [employer] results best viewed via link to PDF [facility] Surgical [facility] [address], [place] [address] Note to Patients: This report may contain a detailed description of human tissue sent by a health care provider to the laboratory for pathologic evaluation. The content of this report is essential for diagnosis and may provide important critical findings. This information may be unfamiliar to patients to review without a medical professional present. It is advised that the patient review this report in the presence of a health care provider who can answer questions and explain the details. SURGICAL PATHOLOGY REPORT FINAL Patient Name: APRIL MARMOLEJO Gender: F : 1955 (Age: 70) Address: [address] [place], [place] [id number] Hospital #: [id number] Taken:05/19/2025 Received:05/19/2025 Reported: 05/20/2025 Patient Type: [facility] SAME Client [facility] Service: Gastro Location: Physician(s): Yarely Roberts M.D. Diagnosis: Pancreas, tail, mass, fine needle biopsy: - Invasive moderately-differentiated adenocarcinoma (see comment). recr/05/20/2025 06:57 By this signature, I attest that the above diagnosis is based upon my personal examination of the slides(and/or other material indicated in the diagnosis). Home Yeager MD, PHD Report Electronically Reviewed and Signed Out By Home Yeager MD, PHD 05/20/2025 17:43:53 Diagnosis Comment The upper EUS impression of an irregular mass (36 mm) in the pancreatic tail is noted. Dr. Mg Hernandes was notified of the findings via [place] secure chat on 05/20/2025. Teressa Bello M.D., P.h.D. History: The patient is a 70-year-old woman with pancreatic mass. Operative procedure: EUS. Specimen(s) Received: A: FNB pancreas tail mass Gross Description: Received in formalin, labeled with the patient's identifiers and FNB pancreas tail mass are multiple polk maroon soft tissue cores measuring 4.4 x 0.8 x 0.1 cm in aggregate. Labeled A1 to A2. Jar 0. cnewho/05/19/2025 14:48 PA(s): NICK Mcdonnell By this signature, I attest that the above diagnosis is based upon my personal examination of the slides(and/or other material). Addenda/Procedures Microscopic slide review and interpretation for this case was performed at [facility], Department of Surgical Pathology, [address] [facility] [id number], [place] [address] CLIA # [id number] The performance characteristics of some immunohistochemical stains, fluorescence in-situ hybridization tests and immunophenotyping by flow cytometry cited in this report (if any) were determined by the Surgical Pathology and Flow Cytometry Departments at [facility] as part of an ongoing quality assurance group leader program and in compliance with federally mandated regulations drawn from the Clinical Laboratory Improvement Act of 1988 (CLIA '88). Some of these tests rely on the use of analyte specific reagents and are subject to specific labeling requirements by the US Food and Drug Administration. Such diagnostic tests may only be performed in a facility that is certified by the Department of Health and Human Services as a high complexity laboratory under CLIA '88. The FDA has determined that such clearance or approval is not necessary. This test is used for clinical purposes. It should not be regarded as investigational or for research. Nevertheless, federal rules concerning the medical use of analyte specific reagents require that the following disclaimer be attached to the report: This test was developed and its performance characteristics determined by the Surgical Pathology and Flow Cytometry Departments of [facility]. It has not been cleared or approved by the U. S. Food and Drug Administration. IMAGES AND SCANNED DOCUMENTS, IF INCLUDED, ONLY VIEWABLE IN PDF VERSION OF REPORT us Mg Hernandes MD LAB PATHOLOGY ORDERABLES Fi nal Result PATHOLOGY [facility] [phone] * Upper EUS (05/19/2025 11:56 AM CDT) Anatomical Region Laterality Modality Other Narrative Procedure Note Mg Hernandes MD - 05/19/2025 11:56 AM CDT ENDOSCOPY LAB Patient Name: April Marmolejo Procedure Date: 05/19/2025 11:56 AM Date of : 1955 Admit Type: Outpatient Age: 70 Gender: Female Attending MD: Mg Hernandes M.D., Room: [facility] ENDOSCOPY ROOM 04 Note Status: Finalized Procedure: Upper EUS Indications: Suspected mass in pancreas on CT scan Comorbidities See the other procedure note for documentation of comorbidities Providers: Mg Hernandes M.D. Referring MD: Christ Wesley M.D. Medicines: Monitored Anesthesia Care Complications: No immediate complications. Estimated Blood Loss: Estimated blood loss: none. Procedure: Pre-Anesthesia Assessment: - Prior to the procedure, a History and Physicalwas performed, and patient medications, allergies and sensitivities were reviewed. The patient'stolerance of previous anesthesia was reviewed. - Immediately prior to administration ofmedications, the patient was re-assessed for adequacy to receive sedatives. The risks, benefits and alternatives were discussed and informed consent was obtained. The [id number] was introduced through the mouth, and advanced to the second part of duodenum Theupper EUS was accomplished without difficulty. Thepatient tolerated the procedure. Findings: ENDOSONOGRAPHIC FINDING: : The esophagus, stomach and duodenum were examinedendosonographically. There was no sign of significant endosonographic abnormalityinvolving the abdominal aorta. An irregular mass was identified in the pancreatic tail. The mass was hypoechoic and heterogenous. The mass measured 38 mm by 36 mm inmaximal cross-sectional diameter. The endosonographic borders were poorly-defined. There was sonographic evidence suggesting invasioninto the splenic artery (manifested by encasement). Fine needle biopsy was performed. Color Doppler imaging was utilized prior to needlepuncture to confirm a lack of significant vascular structures within theneedle path. Three passes were made with the 22 gauge Acquire biopsy needle using a transgastric approach. A visible core of tissue was obtained. Final cytology results are pending. Multiple irregular lesions were identified endosonographically in the left lobe of the liver. The endosonographic appearance was suggestiveof metastases. The lesions were hypoechoic. The largest lesion [id number] mm in maximal cross-sectional diameter. The endosonographic borderswere poorly-defined. A few malignant-appearing lymph nodes were visualized in the bo hepatis region. The largest measured 12 mm by 6 mm in maximal cross-sectional diameter. The nodes were irregular, hypoechoic andhad well defined margins. Unable to examine head of pancreas or bile duct to patient developing significant bradycardia that resolved with scope withdrawal. Impression: - The abdominal aorta was endosonographicallynormal. - An irregular mass was identified in thepancreatic tail. Fine needle biopsy performed. - Multiple metastatic lesions were found in theleft lobe of the liver. - A few malignant-appearing lymph nodes were visualized in the bo hepatis region. - Patient developed significant bradycardia when echoendoscope was advanced into the duodenum, resulting in abbreviated examination. Bradycardia resolved with endoscope withdrawal. Recommendation: - The patient will be observed post-procedure,until all discharge criteria are met. - Observe patient's clinical course. - Continue present medications. - No ibuprofen, naproxen, or other non-steroidal anti-inflammatory drugs for 14 days. - Await pathology results. - Resume previous diet. - Return to referring physician as previously scheduled. - In the unusual situation that you developabdominal, bleeding or other significant problems in the days following this procedure please call [phone] ask for my nurse, Hiral Carranza. After hours and evenings please call [phone] and speak to theGI fellow physician interventional cardiologist. Please tell the fellow that Dr. Hernandes did your procedure and that you were instructed to have the fellow call me or thephysician covering for me to discuss the management of your condition. If you have an urgent problem, please goto the nearest emergency room and have the ER doctorcall my office during the day or [facility] transfer ([phone]) center after hours and weekends to arrange admission or transfer to our facility. Attending Participation: I personally performed the entire procedure. Electronically signed by Mg Hernandes MD Mg Hernandes M.D. 05/19/2025 12:28:11 PM Number of Addenda: 0 Note Initiated On: 05/19/2025 11:56 AM Mg Hernandes MD ENDOSCOPY PROCEDURES Final Result * CT Body Outside Consult (05/14/2025 10:57 AM CDT) Anatomical Region Laterality Modality Body N/A Computed Tomogra phy 05/14/2025 11:4 4 AM CDT Impressions 05/14/2025 12:10 PM CDT 1. 2.5 cm hypoattenuating pancreatic tail mass suspicious for primary pancreatic malignancy. 2. Findings of extensive metastatic disease including diffuse peritoneal carcinomatosis, retroperitoneal and peripancreatic lymphadenopathy, hepatic and pulmonary metastases. 3. Several sclerotic osseous lesions favored to represent bone islands. Recommend attention on follow up. The findings, conclusions and recommendations within this report do not replace the initial findings, conclusions and recommendations made at the facility where the study was performed based upon the imaging and clinical condition at that time. Comparison with the prior report and clinical history is necessary. The provided images may or may not represent the chilkoot source data set and thus may contain changes that may lower the accuracy of this second-opinion interpretation. Dictated by: Nabil Steele MD The radiology attending physician has personally reviewed this study, and had reviewed and/or edited this written report and agrees with it. Electronically signed by: Elvin Lo M.D. Narrative 05/14/2025 12:10 PM CDT EXAMINATION: RADIOLOGY CONSULTATION ON OUTSIDE IMAGING STUDY STUDY INITIALLY PERFORMED: 04/30/2025 at [facility]. TYPE OF STUDY: Multiple CT images of the chest abdomen and pelvis without contrast are provided at the time of this interpretation. CONTRAST ROUTE: No contrast was administered. The protocol was adequate to address the clinical question. The outside final report was available at the time of this second opinion interpretation. TYPE OF CONSULTATION: Consult on outside imaging study with images submitted through Outside Image Sharing Service DATE OF CONSULTATION: 05/14/2025 11:15 AM HISTORY: 70-year-old female presented with abdominal pain and unintentional weight loss COMPARISON: None available. FINDINGS: No axillary, supraclavicular, mediastinal, or hilar lymphadenopathy. Normal heart size. No pericardial effusion. coronary artery calcifications. Normal caliber thoracic aorta. Normal caliber main pulmonary artery. There are numerous bilateral solid and subsegmental pulmonary nodules. For example, a right upper lobe nodule measuring 1.5 cm on series 4 image 29. A 0.7 cm left lower lobe pulmonary nodule on series 4 image 65. No consolidation, pleural effusion, or pneumothorax. There are numerous hypoattenuating liver lesions suspicious for metastases. For reference, the largest of these is in hepatic segment 4A/2 measuring approximately 6.0 cm. The pancreatic tail. There is a 2.5 x 2.2 cm hypoattenuating mass. The gallbladder is decompressed. Normal spleen and bilateral adrenal glands. Unremarkable noncontrast appearance of bilateral kidneys. No hydronephrosis. Urinary bladder is partially decompressed. The uterus is atrophic or absent. Mild colonic diverticulosis. Normal course caliber of large bowel. The appendix is not identified. Normal caliber abdominal aorta with mild atherosclerotic calcification. There are several prominent peripancreatic lymph nodes. There is extensive peritoneal and omental nodularity extending throughout the abdomen. For reference, a 2.4 cm left lower quadrant mass on series 3 image 202. There is small volume ascites, likely malignant. No pneumoperitoneum. There are multiple colonic serosal deposits. For example, a 3.0 cm) on series 3 image 210. There are numerous sclerotic osseous lesions are visible no stones or osseous metastases. 1.4 cm left retroperitoneal lymph node on series 3 image 139. Procedure Note Elvin Lo MD - 05/14/2025 EXAMINATION: RADIOLOGY CONSULTATION ON OUTSIDE IMAGING STUDY STUDY INITIALLY PERFORMED: 04/30/2025 at [facility]. TYPE OF STUDY: Multiple CT images of the chest abdomen and pelvis without contrast are provided at the time of this interpretation. CONTRAST ROUTE: No contrast was administered. The protocol was adequate to address the clinical question. The outside final report was available at the time of this second opinion interpretation. TYPE OF CONSULTATION: Consult on outside imaging study with images submitted through Outside Image Sharing Service DATE OF CONSULTATION: 05/14/2025 11:15 AM HISTORY: 70-year-old female presented with abdominal pain and unintentional weight loss COMPARISON: None available. FINDINGS: No axillary, supraclavicular, mediastinal, or hilar lymphadenopathy. Normal heart size. No pericardial effusion. coronary artery calcifications. Normal caliber thoracic aorta. Normal caliber main pulmonary artery. There are numerous bilateral solid and subsegmental pulmonary nodules. For example, a right upper lobe nodule measuring 1.5 cm on series 4 image 29. A 0.7 cm left lower lobe pulmonary nodule on series 4 image 65. No consolidation, pleural effusion, or pneumothorax. There are numerous hypoattenuating liver lesions suspicious for metastases. For reference, the largest of these is in hepatic segment 4A/2 measuring approximately 6.0 cm. The pancreatic tail. There is a 2.5 x 2.2 cm hypoattenuating mass. The gallbladder is decompressed. Normal spleen and bilateral adrenal glands. Unremarkable noncontrast appearance of bilateral kidneys. No hydronephrosis. Urinary bladder is partially decompressed. The uterus is atrophic or absent. Mild colonic diverticulosis. Normal course caliber of large bowel. The appendix is not identified. Normal caliber abdominal aorta with mild atherosclerotic calcification. There are several prominent peripancreatic lymph nodes. There is extensive peritoneal and omental nodularity extending throughout the abdomen. For reference, a 2.4 cm left lower quadrant mass on series 3 image 202. There is small volume ascites, likely malignant. No pneumoperitoneum. There are multiple colonic serosal deposits. For example, a 3.0 cm) on series 3 image 210. There are numerous sclerotic osseous lesions are visible no stones or osseous metastases. 1.4 cm left retroperitoneal lymph node on series 3 image 139. IMPRESSION: 1. 2.5 cm hypoattenuating pancreatic tail mass suspicious for primary pancreatic malignancy. 2. Findings of extensive metastatic disease including diffuse peritoneal carcinomatosis, retroperitoneal and peripancreatic lymphadenopathy, hepatic and pulmonary metastases. 3. Several sclerotic osseous lesions favored to represent bone islands. Recommend attention on follow up. The findings, conclusions and recommendations within this report do not replace the initial findings, conclusions and recommendations made at the facility where the study was performed based upon the imaging and clinical condition at that time. Comparison with the prior report and clinical history is necessary. The provided images may or may not represent the chilkoot source data set and thus may contain changes that may lower the accuracy of this second-opinion interpretation. Dictated by: Nabil Steele MD The radiology attending physician has personally reviewed this study, and had reviewed and/or edited this written report and agrees with it. Electronically signed by: Elvin Lo M.D. Paul Cardoza MD IMG CT PROCEDURES Final Result * SCAN - RADIOLOGY/IMAGING (04/30/2025) Anatomical Region Laterality Modality Other us Provider Scanning Final Result * Dexa TBS Axial Skeleton Bone Density 1 or more sites (08/06/2024 10:13 AM GAS WELDER) Anatomical Region Laterality Modality Wrist, Body N/A Radiographic Jaja ging Narrative 08/06/2024 3:34 PM GAS WELDER Patient Name: April Marmolejo Date of : 1955 Date of scan: 08/06/2024 Bone mineral density was performed on a [employer] Discovery Densitometer. Based on machine cross-calibration and [...] density scan were prepared by Janis Pineda (R)([facility]) who is accredited by the International Society of Clinical Densitometry. The overall patient assessment and scan interpretation were performed by Lakshmi Mccallum M.D. who is certified by the International Society of Clinical Densitometry. [id number] Lakshmi Mccallum MD IMG DXA PROCEDURES Final Re sult from Last 3 Months or Most Recently Relevant to Health Maintenance Insurance [employer] MEDICARE PPO Advance Directives For more information, please contact: [phone] * Full Code (Latest Code Status on File) Date Activated Date Inactivated Comments 05/19/2025 10:49 AM 05/19/2025 5:53 PM Care Teams Book Retailer Relationship Specialty Start Date End Date Christ Wesley MD [address] [place] [address] PCP - General Family Medicine 11/27/18 Mg Hernandes MD [address] [place] [address] Consulting Physician Internal Medicine 05/27/25 Sonia Escamilla MD [address] [place] [address] Consulting Physician Medical Oncology 05/27/25
--- OUTSIDE RECORDS SUMMARY | 2025-05-31 07:55 | XMS_ITS | Clinical Summary ---
Author Organization [facility] Address [address] [place] [id number] Care Team Providers Care Glassine Machine Tender Name Role Phone Christ Wesley MD Primary Care Provider [phone] Allergies Active Allergy Reactions Criticality Noted Date [...] on file Legal Sex Female 6:53 PM PLACEMENT SECRETARY Gender Identity Not on file Sexual Orientation Not on file Last Filed Vital Signs Vital Sign Reading Time Taken Comments Blood Pressure 148/72 11/26/2023 7:03 PM PLACEMENT SECRETARY Pulse 87 11/26/2023 7:03 PM PLACEMENT SECRETARY Temperature 36.7 C (98 F) 11/26/2023 7:03 PM PLACEMENT SECRETARY Respiratory Rate 16 11/26/2023 7:03 PM PLACEMENT SECRETARY Oxygen Saturation 100% 11/26/2023 7:03 PM PLACEMENT SECRETARY Inhaled Oxygen Concentration - - Weight 76.2 kg (168 lb) 11/26/2023 7:03 PM PLACEMENT SECRETARY Height 167.6 cm (5' 6) 11/26/2023 7:03 PM PLACEMENT SECRETARY Body Mass Index 27.12 11/26/2023 7:03 PM PLACEMENT SECRETARY Plan of Treatment Health Maintenance Due Date Last Done Comments Colorectal Cancer Screening Colonoscopy (10 Years) 1954 Hepatitis C 1972 Mammogram Screening 1994 Annual Medicare Wellness Visit 2019 COVID-19 Vaccine (3 2024-2 6 season) 2025 12/10/2020, 11/18/2020 RSV Immunization or 60+ Years [...] patient's age to complete this topic Insurance [facility] Care Teams Glassine Machine Tender Relationship Specialty Start Date End Date Christ Wesley MD [address] [place] [address] PCP - General FAMILY PRACTICE 11/26/23
--- OUTSIDE RECORDS SUMMARY | 2025-05-31 07:55 | XMS_ITS | Encounter Summary ---
Author Organization [facility] Address [address] [place] [address] Phone Care Team Providers Care Potable Water Treatment Operator Name Role Phone Christ Wesley MD Primary Care Provider Mg Hernandes MD Unavailable [phone] Sonia Escamilla MD Unavailable [phone] Encounter Details Date Type Department Care Team (Late st Contact Info) Description 04/30/2025 Orders Only [facility] Scanning, Provider Social History Tobacco Use Types Packs/Day Years Used Date Smoking Tobacco: Never Smokeless Tobacco: Never Comments Unknown Sex and Gender Information Value Date Recorded Sex Assigned at Not on file Legal Sex Female 9:06 AM SPANISH MEDICAL INTERPRETER Gender Identity Female 11/27/2018 8:55 AM SPANISH MEDICAL INTERPRETER Sexual Orientation Straight 07/13/2021 6: 23 PM CDT documented as of this encounter Plan of Treatment Not on file documented as of this encounter Procedures Procedure Name Priority Date/Time Associated Diagnosis Comments SCAN - RADIOLOGY/IMAGING 04/30/2025 documented in this encounter Results * SCAN - RADIOLOGY/IMAGING (04/30/2025) Anatomical Region Laterality Modality Other us Provider Scanning Final Result documented in this encounter Visit Diagnoses Not on filedocumented in this encounter Care Teams Potable Water Treatment Operator Relationship Specialty Start Date End Date Christ Wesley MD [address] [place] [address] PCP - General Family Medicine 11/27/18 Mg Hernandes MD [address] [place] [address] Consulting Physician Internal Medicine 05/27/25 Sonia Escamilla MD [address] [place] [address] Consulting Physician Medical Oncology 05/27/25 documented as of this encounter
--- NOTE | 2025-05-31 08:06 | ED.GENADULT ---
HPI - General Adult General Chief complaint: Weakness Stated complaint: generalized weakness, hx cancer Time Seen by Provider: 05/31/25 07:51 History of Present Illness HPI narrative: 70-year-old female present to the emergency department for evaluation for increased generalized weakness. Patient was diagnosed with pancreatic cancer on 04/30 and will ultimately be following up with Dr. Escamilla at [facility] but this will not be until next Saturday. Patient reports she has had worsening p.o. intake and worsening generalized weakness. At time of evaluation patient does complain some lower abdominal tenderness to palpation but has declined any medications for nausea or for pain control. Patient states she has also had some dark stool over the last few weeks. Patient denies any bright red blood in stool Related Data Home Medications ?Medication ?Instructions ?Recorded ?Confirmed ?Last Taken ?Type raloxifene 60 mg tablet (Evista) 60 mg PO DAILY 10/22/19 05/31/25 Unknown History Held on 05/31/25. Instructions: Patient Condition latanoprost 0.005 % eye drops 1 drp EACH EYE DAILY 12/12/23 05/31/25 Unknown History Allergies Allergy/AdvReac Type Severity Reaction Status Date / Time Penicillins Allergy Unknown Unknown Verified 05/31/25 08:00 Sulfa (Sulfonamide Allergy Unknown Unknown Verified 05/31/25 08:00 Antibiotics) Review of Systems Review of Systems: All systems reviewed & are unremarkable except as noted in HPI and below PMFSH Past Medical History Medical History Colon cancer screening Family History Family History Father Family history of Alzheimer's disease Mother Family history of malignant neoplasm of breast in first degree relative Social History Social History Social History: Smoking status: Never smoker Second hand tobacco smoke exposure: No Alcohol intake: never Alcohol use details: Occasionally Substance use: never Substance use type: does not use Do You Feel Safe in your Home?: Yes Lack of Transportation: No Lack of Food: Never True Current Housing: I Have Housing Concerned About Future Housing: No Difficulty Paying Gas/Electric Bills: No Difficulty Paying for Meds: No Currently Unemployed: No Education: Don't Know Difficulty w/ Childcare or Family Care: No Living arrangements: with family Occupation/Education: occupation Gender identity (if verbalized by the patient): Female Sexual Orientation (if Verbalized by the Patient): Straight or Heterosexual Spiritual care concerns: No Exam Narrative: APPEARANCE: Ill-appearing HEAD: normocephalic, atraumatic. EYES: PERRLA/EOMI, conjunctivae clear. NOSE: Normal no drainage EARS:TMS clear with good light reflex. THROAT: Pharynx clear, no exudate. NECK: Supple. No adenopathy, no masses. RESPIRATORY: Airway patent, respirations nonlabored. Clear to auscultation bilaterally, no rales, rhonchi, wheezing. CARDIOVASCULAR: Regular rate and rhythm without murmurs rubs or gallops. ABDOMINAL: Lower abdominal tenderness to palpation MUSCULOSKELETAL: Moves all extremities. Strength/ROM intact, No edema, No calf tenderness. NEURO: Alert. Cranial nerves II through XII intact. Good gait. Good coordination SKIN: Warm, dry. Normal Color Course Vital Signs Vital signs: Vital Signs Temperature 98.0 F 05/31/25 07:50 Pulse Rate 104 H 05/31/25 07:50 Respiratory Rate 32 H 05/31/25 07:50 Blood Pressure 115/63 05/31/25 07:50 Pulse Oximetry 95 05/31/25 07:50 Oxygen Delivery Room Air 05/31/25 07:50 Temperature 98.1 F 05/31/25 12:54 Pulse Rate 98 05/31/25 15:31 Respiratory Rate 26 H 05/31/25 15:31 Blood Pressure 125/69 05/31/25 15:31 Pulse Oximetry 96 05/31/25 15:31 Oxygen Delivery Room Air 05/31/25 07:50 Medical Decision Making [facility] Narrative Medical decision making narrative: 70-year-old female presents to the emergency department for evaluation for increased generalized weakness. Patient is afebrile but does have a white count of 20.4 and hemoglobin of 6.0. This is a significant decrease in the patient's hemoglobin from a month ago. Patient states she was having some dark stool but denies seeing any blood. Patient states her stool has been dark for proximal last month. Patient was Hemoccult negative on her rectal exam today. Patient does have a hyponatremia with a sodium of 125 and mild elevations and T bili AST ALT and alk-phos. Patient does have an elevated lipase 846. UA was negative for infection. Patient was negative for influenza RSV and for COVID. Patient's blood type is O-positive. On the CT scan there is a constellation of findings suggestive of primary pancreatic cancer with hepatic, pulmonary, retroperitoneal and omental/peritoneal metastatic disease potentially also some osseous metastatic disease. Moderate amount of complex ascites with increased density in the cul-de-sac which could be due to malignant ascites, hemoperitoneum or peritonitis. With patient having a significant drop in her hemoglobin and being Hemoccult negative on the digital rectal exam I do have increased suspicion that this is hemoperitoneum. Patient was treated with 2 units of packed red blood. Patient was also started on cefepime and Flagyl for antibiotics and blood cultures were ordered. Cefepime and Flagyl were chosen due to the patient's underlying medication allergies. Patient was also treated with a dose of octreotide and Protonix in case this is an a upper GI bleed. I rediscussed the case with [facility] and conveyed the lactic acid Patient was accepted by the oncology team at [facility]. Patient family updated the results of the workup and plan for transfer. Patient did receive at bed at [facility] and patient was well-appearing at time of transfer. Critical Care Procedure Note Authorized and Performed by: Nikhil Rome Total critical care time: Approximately 36 minutes Due to a high probability of clinically significant, life threatening deterioration, the patient required my highest level of preparedness to intervene emergently and I personally spent this critical care time directly and personally managing the patient. This critical care time included obtaining a history; examining the patient; pulse oximetry; ordering and review of studies; arranging urgent treatment with development of a management plan; evaluation of patient's response to treatment; frequent reassessment; and, discussions with other providers. This critical care time was performed to assess and manage the high probability of imminent, life-threatening deterioration that could result in multi-organ failure. It was exclusive of separately billable procedures and treating other patients and teaching time. Please see MDM section and the rest of the note for further information on patient assessment and treatment. Differential Diagnosis Differential Diagnosis: GI bleed, pancreatitis, pancreatic cancer, ascites, hemoperitoneum,UTI, pneumonia Vital Signs Vital Signs: Vital Signs Temperature 98.0 F 05/31/25 07:50 Pulse Rate 104 H 05/31/25 07:50 Respiratory Rate 32 H 05/31/25 07:50 Blood Pressure 115/63 05/31/25 07:50 Pulse Oximetry 95 05/31/25 07:50 Oxygen Delivery Room Air 05/31/25 07:50 Temperature 98.1 F 05/31/25 12:54 Pulse Rate 98 05/31/25 15:31 Respiratory Rate 26 H 05/31/25 15:31 Blood Pressure 125/69 05/31/25 15:31 Pulse Oximetry 96 05/31/25 15:31 Oxygen Delivery Room Air 05/31/25 07:50 Lab Data Lab results reviewed: Yes I reviewed the patient's lab results. 05/31/25 08:04 05/31/25 08:04 Labs: Lab Results 05/31/25 05/31/25 05/31/25 Range/Units 08:03 08:04 09:27 WBC 20.4 H (4.5-10.0) K/mm3 RBC 1.80 L (4.2-5.4) M/mm3 Hgb 6.0 L* (12.0-15.0) g/dL Hct 18.5 L* (37.0-47.0) % MCV 102.8 H (80-100) fl MCH 33.3 (26-34) pg MCHC 32.4 (32-36) g/dl RDW 18.7 H (11.5-14.5) % Plt Count 368 (150-375) k/mm3 MPV 9.4 (7.4-10.4) fl Immature Gran % (Auto) 1.6 H (0-0.5) % Neut % (Auto) 85.3 H (45.5-73.1) % Lymph % (Auto) 5.3 L (18.3-44.2) % [place] % (Auto) 6.9 (2.6-8.5) % Eos % (Auto) 0.7 (0-4.4) % Baso % (Auto) 0.2 (0.2-1.2) % Lymph # (Auto) 1.08 (0.9-3.2) K/mm3 [place] # (Auto) 1.4 H (0.1-0.6) K/mm3 Eos # (Auto) 0.1 (0-0.3) K/mm3 Baso # (Auto) 0.1 (0.0-0.1) K/mm3 Abs Immat Gran (auto) 0.32 H (0.00-0.031) K/mm3 Absolute Neuts (auto) 17.4 H (1.3-6.7) K/mm3 Absolute Nucleated RBC 0.000 (0.0-0.012) K/mm3 Band Neutrophils % Not Reportable Nucleated RBC % 0.0 (0.0-0.2) % Platelet Estimate Adequate (Adequate) Polychromasia 1+ Hypochromasia 2+ Anisocytosis 1+ Schistocytes Occasional PT 15.1 H (11.1-14.7) Seconds INR 1.2 APTT 27.7 (22.3-36.8) Seconds Sodium 125 L (137-145) mmol/L Potassium 3.7 (3.4-5.0) mmol/L Chloride 93 L (98-107) mmol/L Carbon Dioxide 26 (22-30) mmol/L Anion Gap 6 (4-12) mmol/L BUN 11 (7-17) mg/dL Creatinine 0.63 L (0.7-1.0) mg/dL Estim Creat Clear Calc Not Reportable Estimated GFR > 60 (59 - ) Glucose 148 H (65-110) mg/dL Lactic Acid (0.7-2.0) mmol/L Calcium 8.6 (8.4-10.2) mg/dL Iron 39 (37-170) ug/dL TIBC 306 (261-462) ug/dL % Saturation 13 L (20-50) % Total Bilirubin 1.8 H (0.2-1.3) mg/dL AST 103 H (14-36) U/L ALT 84 H (6-35) U/L Alkaline Phosphatase 471 H (38-126) U/L C-Reactive Protein (<1.0) mg/dL Total Protein 6.0 L (6.3-8.2) g/dL Albumin 3.1 L (3.5-5.1) g/dL Lipase 846 H (23-300) U/L Vitamin B12 > 1000.0 H (239-931) pg/mL Folate 12.1 (2.76->20) ng/mL Urine Color Yellow (Yellow) Urine Appearance Clear (Clear) Urine pH 6.5 (5.0-9.0) Ur Specific [place] 1.004 (1.001-1.035) Urine Protein Negative (Negative) mg/dL Urine Glucose (UA) Negative (Negative) mg/dL Urine Ketones Trace H (Negative) mg/dL Ur Blood (Man) Negative (Negative) Urine Nitrate Negative (Negative) Urine Bilirubin Negative (Negative) Urine Urobilinogen 1.0 (<2.0) mg/dL Leukocyte Esterase Rfl Negative (Negative) EDITA/UL Influenza A (RT-PCR) Negative (Negative) Influenza B (RT-PCR) Negative (Negative) RSV (RT-PCR) Negative (Negative) SARS-CoV-2 RNA (RT-PCR) Negative (Negative) Blood Type O Positive Antibody Screen Negative Crossmatch See Detail 05/31/25 Range/Units 12:11 WBC (4.5-10.0) K/mm3 RBC (4.2-5.4) M/mm3 Hgb (12.0-15.0) g/dL Hct (37.0-47.0) % MCV (80-100) fl MCH (26-34) pg MCHC (32-36) g/dl RDW (11.5-14.5) % Plt Count (150-375) k/mm3 MPV (7.4-10.4) fl Immature Gran % (Auto) (0-0.5) % Neut % (Auto) (45.5-73.1) % Lymph % (Auto) (18.3-44.2) % [place] % (Auto) (2.6-8.5) % Eos % (Auto) (0-4.4) % Baso % (Auto) (0.2-1.2) % Lymph # (Auto) (0.9-3.2) K/mm3 [place] # (Auto) (0.1-0.6) K/mm3 Eos # (Auto) (0-0.3) K/mm3 Baso # (Auto) (0.0-0.1) K/mm3 Abs Immat Gran (auto) (0.00-0.031) K/mm3 Absolute Neuts (auto) (1.3-6.7) K/mm3 Absolute Nucleated RBC (0.0-0.012) K/mm3 Band Neutrophils % Nucleated RBC % (0.0-0.2) % Platelet Estimate (Adequate) Polychromasia Hypochromasia Anisocytosis Schistocytes PT (11.1-14.7) Seconds INR APTT (22.3-36.8) Seconds Sodium (137-145) mmol/L Potassium (3.4-5.0) mmol/L Chloride (98-107) mmol/L Carbon Dioxide (22-30) mmol/L Anion Gap (4-12) mmol/L BUN (7-17) mg/dL Creatinine (0.7-1.0) mg/dL Estim Creat Clear Calc Estimated GFR (59 - ) Glucose (65-110) mg/dL Lactic Acid 1.4 (0.7-2.0) mmol/L Calcium (8.4-10.2) mg/dL Iron (37-170) ug/dL TIBC (261-462) ug/dL % Saturation (20-50) % Total Bilirubin (0.2-1.3) mg/dL AST (14-36) U/L ALT (6-35) U/L Alkaline Phosphatase (38-126) U/L C-Reactive Protein 7.8 H (<1.0) mg/dL Total Protein (6.3-8.2) g/dL Albumin (3.5-5.1) g/dL Lipase (23-300) U/L Vitamin B12 (239-931) pg/mL Folate (2.76->20) ng/mL Urine Color (Yellow) Urine Appearance (Clear) Urine pH (5.0-9.0) Ur Specific [place] (1.001-1.035) Urine Protein (Negative) mg/dL Urine Glucose (UA) (Negative) mg/dL Urine Ketones (Negative) mg/dL Ur Blood (Man) (Negative) Urine Nitrate (Negative) Urine Bilirubin (Negative) Urine Urobilinogen (<2.0) mg/dL Leukocyte Esterase Rfl (Negative) EDITA/UL Influenza A (RT-PCR) (Negative) Influenza B (RT-PCR) (Negative) RSV (RT-PCR) (Negative) SARS-CoV-2 RNA (RT-PCR) (Negative) Blood Type Antibody Screen Crossmatch Imaging Data Radiologist's impression: Impressions Abdomen/Pelvis CT 05/31/25 11:10 IMPRESSION: 1. Constellation of findings suggestive of primary pancreatic cancer with hepatic, pulmonary, retroperitoneal and omental/peritoneal metastatic disease potentially also some osseous metastatic disease. 2. Moderate amount of complex ascites with increased density in the cul-de-sac which could be due to malignant ascites, hemoperitoneum or peritonitis. Critical Care Time Critical Care Time Critical Care Time: Yes Total Critical Care Time: 36 Discharge Plan Discharge Clinical Impression: Anemia, Acute hyponatremia, Metastasis from pancreatic cancer Patient Disposition: Acute Care Hospital Condition: Serious Patient Language: Polish Prescriptions: No Action raloxifene [Evista] 60 mg tablet 60 mg PO DAILY latanoprost 0.005 % drops 1 drp EACH EYE DAILY sertraline 25 mg tablet See Rx Instructions .ROUTE .COMPLEX Qty: 90 3RF Dose Instruction: TAKE 1 TABLET EVERY DAY Rx Instructions: TAKE 1 TABLET EVERY DAY tramadol 50 mg tablet 50 mg PO Q8H PRN (Reason: pain) Qty: 90 0RF Follow-up/Referrals: Christ Wesley MD [Primary Care Provider, Family Practice]
[2025-05-31 08:10] LABS: Immature Granulocyte Percent A 1.6 % (0-0.5); Lymphocytes Absolute Auto 1.08 K/mm3 (0.9-3.2); Mean Corpuscular HGB Conc 32.4 g/dl (32-36); Mean Corpuscular Hemoglobin 33.3 pg (26-34); Mean Corpuscular Volume 102.8 fl (80-100); Nucleated Red Blood Cells Absolute Auto 0.000 K/mm3 (0.0-0.012); Nucleated Red Blood Cells Perc 0.0 % (0.0-0.2); Platelet Count Result 368 k/mm3 (150-375); Red Blood Count 1.80 M/mm3 (4.2-5.4); White Blood Count 20.4 K/mm3 (4.5-10.0)
[2025-05-31] MEDS: LACTATED RINGERS 1,000 ML 999 ML IV CONT ×2 (08:19→08:30)
[2025-05-31 08:21] LABS: Alanine Aminotransferase 84 U/L (6-35); Albumin Level 3.1 g/dL (3.5-5.1); Alkaline Phosphatase 471 U/L (38-126); Anion Gap 6 mmol/L (4-12); Aspartate Amino Transferase 103 U/L (14-36); Bilirubin,Total 1.8 mg/dL (0.2-1.3); Blood Urea Nitrogen 11 mg/dL (7-17); Calcium 8.6 mg/dL (8.4-10.2); Carbon Dioxide 26 mmol/L (22-30); Chloride 93 mmol/L (98-107); Estimated Glomerular Filt Rate > 60; Glucose 148 mg/dL (65-110); Potassium 3.7 mmol/L (3.4-5.0); Sodium 125 mmol/L (137-145); Total Protein 6.0 g/dL (6.3-8.2)
--- OUTSIDE RECORDS SUMMARY | 2025-05-31 08:21 | XMS_ITS | Clinical Summary ---
Author Organization [facility] 2 Address [address] [facility] [place] [address] Care Team Providers Care Client Development Manager Name Role Phone Christ Wesley MD Primary Care Provider Mg Hernandes MD Unavailable [phone] Sonia Escamilla MD Unavailable [phone] Allergies Active Allergy Reactions Criticality Noted Date [...] scoliosis. Assessment & Plan (08/17/2024 6:52 PM PHYSICIAN ASSISTANT PRIMARY CARE): Ms. MARMOLEJO is currently being treated for [...] raloxifene Assessment & Plan (08/02/2022 2:46 PM PHYSICIAN ASSISTANT PRIMARY CARE): Ms. MARMOLEJO is currently being treated for [...] raloxifene. Assessment & Plan (11/27/2018 10:15 AM PHYSICIAN ASSISTANT PRIMARY CARE): Ms. MARMOLEJO is currently being treated for [...] Type Department Care Team Description 05/27/20 Telephone [facility] Medicine Oncology [address] [facility] Floor [address] [place] [address] Nikky Malagon 05/26/20 Results Follow-Up [facility] Medicine Gastroenterology [address] [facility] 2nd Floor [address] [place] [address] Mg Hernandes MD Surgical pathology 05/19/20 25 12:02 PM CDT Anesthesia Event [facility] Endoscopy [id number] [place] [address] [address] Grant Muhammad MD 05/19/20 25 11:45 AM CDT - 05/19/20 25 12:15 PM CDT Surgery [facility] Endoscopy [address] [place] [address] Mg Hernandes MD ESOPHAGOGASTRODUODENOSCOPY ULTRASOUND FINE NEEDLE ASPIRATION/BIOPSY 05/19/20 25 10:25 AM CDT - 05/19/20 25 1:48 PM CDT Hospital Encounter [facility] Endoscopy [address] [place] [address] Mg Hernandes MD Pancreatic mass Discharge Disposition: Discharge to home or self care 05/14/20 25 10:56 AM CDT - 05/14/20 11:59 PM CDT Hospital Encounter [facility] [address] [place] [address] Diagnosis unknown Discharge Disposition: Discharge to home or self care 05/11/20 25 Telephone [facility] Gastroenterology [address] [facility] Medical Office Building [address], [address] [place] [phone] Tina Liu LPN GI Preprocedure 05/07/20 25 Telephone [facility] Medicine Surgery [address] [facility] Floor [address] [place] [address] Yanique Cosme MD Medical Question/Miscellaneous 05/07/20 25 Telephone [facility] [address] [place] [address] Leslie Mohan, RN FOLLOW UP [...] on file Legal Sex Female 9:06 AM PHYSICIAN ASSISTANT PRIMARY CARE Gender Identity Female 11/27/2018 8:55 AM PHYSICIAN ASSISTANT PRIMARY CARE Sexual Orientation Straight 07/13/2021 6: 23 PM [...] Read Routine (OP Routine) 08/06/2024 10:13 AM PHYSICIAN ASSISTANT PRIMARY CARE Age-related osteoporosis without current pathological fracture from Last 3 Months or Most Recently Relevant to Health Maintenance Results * Surgical pathology (05/19/2025 12:21 PM CDT) Tissue (Pancreas, Biopsy) 05/19/2025 12:21 PM CDT Narrative PATHOLOGY [facility] - 05/20/2025 5:43 PM CDT [place] results best viewed via link to PDF [facility] [address] [facility], [place] [address] Note to Patients: This report may contain [...] Gender: F : 1955 (Age: 70) Address: [address] [place], [place] [address] Hospital #: [id number] Taken:05/19/2025 Received:05/19/2025 Reported: 05/20/2025 [facility] SAME Client [facility] Service: Gastro Location: Physician(s): Yarely Roberts M.D. [...] Hernandes was notified of the findings via [employer] secure chat on 05/20/2025. Teressa Bello M.D., [...] interpretation for this case was performed at [facility], Department of Surgical Pathology, [address] [facility] [place], [place] [id number], [place] [address] CLIA # [id number] The performance characteristics of some immunohistochemical stains, fluorescence in-situ hybridization tests and immunophenotyping by flow cytometry cited in this report (if any) were determined by the Surgical Pathology and Flow Cytometry Departments at [facility] as part of an ongoing food quality tester program and in compliance with federally mandated [...] Surgical Pathology and Flow Cytometry Departments of [facility]. It has not been cleared or approved by the U. S. Food and Drug Administration. IMAGES AND SCANNED DOCUMENTS, IF INCLUDED, ONLY VIEWABLE IN PDF VERSION OF REPORT us Mg Hernandes MD LAB PATHOLOGY ORDERABLES Fi nal Result PATHOLOGY [facility] [phone] * Upper EUS (05/19/2025 11:56 AM CDT) Anatomical Region Laterality Modality Other Narrative Procedure Note Mg Hernandes MD - 05/19/2025 11:56 AM CDT ENDOSCOPY LAB Patient Name: April Marmolejo Procedure Date: 05/19/2025 11:56 AM Date of : 1955 Admit Type: Outpatient Age: 70 Gender: Female Attending MD: Mg Hernandes M.D., Room: [facility] ENDOSCOPY ROOM 04 Note Status: Finalized Procedure: [...] discussed and informed consent was obtained. The [id number] was introduced through the mouth, and advanced [...] The lesions were hypoechoic. The largest lesion usagqohp37 mm in maximal cross-sectional diameter. The endosonographic [...] the days following this procedure please call [phone] ask for my nurse, Hiral Carranza. After hours and evenings please call [phone] and speak to theGI fellow customer operations associate. Please tell the fellow that Dr. Hernandes did your procedure and that you were instructed to have the fellow call me or thephysician covering for me to discuss the management of your condition. If you have an urgent problem, please goto the nearest emergency room and have the ER doctorcall my office during the day or [facility] transfer ([phone]) center after hours and weekends to arrange [...] images may or may not represent the [place] source data set and thus may contain [...] IMAGING STUDY STUDY INITIALLY PERFORMED: 04/30/2025 at [facility]. TYPE OF STUDY: Multiple CT images of [...] IMAGING STUDY STUDY INITIALLY PERFORMED: 04/30/2025 at [facility]. TYPE OF STUDY: Multiple CT images of [...] images may or may not represent the [place] source data set and thus may contain [...] 1 or more sites (08/06/2024 10:13 AM PHYSICIAN ASSISTANT PRIMARY CARE) Anatomical Region Laterality Modality Wrist, Body N/A Radiographic Jaja ging Narrative 08/06/2024 3:34 PM PHYSICIAN ASSISTANT PRIMARY CARE Patient Name: April Marmolejo Date of : 1955 Date of scan: 08/06/2024 Bone mineral density was performed on a HoloGestureTek Discovery Densitometer. Based on machine cross-calibration and [...] density scan were prepared by Janis Pineda (R)([facility]) who is accredited by the International Society of Clinical Densitometry. The overall patient assessment and scan interpretation were performed by Lakshmi Mccallum M.D. who is certified by the International Society of Clinical Densitometry. [id number] Lakshmi Mccallum MD IMG DXA PROCEDURES Final Re sult from Last 3 Months or Most Recently Relevant to Health Maintenance Insurance [employer] MEDICARE PPO Advance Directives For more information, please contact: [phone] * Full Code (Latest Code Status on File) Date Activated Date Inactivated Comments 05/19/2025 10:49 AM 05/19/2025 5:53 PM Care Teams Client Development Manager Relationship Specialty Start Date End Date Christ Wesley MD [address] [place] [address] PCP - General Family Medicine 11/27/18 Mg Hernandes MD [address] [place] [address] Consulting Physician Internal Medicine 05/27/25 Sonia Escamilla MD [address] [place] [address] Consulting Physician Medical Oncology 05/27/25
--- OUTSIDE RECORDS SUMMARY | 2025-05-31 08:21 | XMS_ITS | Encounter Summary ---
Author Organization [facility] Address [address] [place] [address] Phone Care Team Providers Care Child Care Team Lead Name Role Phone Christ Wesley MD Primary Care Provider Mg Hernandes MD Unavailable [phone] Sonia Escamilla MD Unavailable [phone] Reason for Referral * Consultation (Routine) - Authorized Specialty Diagnoses / Procedures Referred By Fernando salazar Referred To Contact Oncology Diagnoses Pancreatic mass Pancreatic adenocarcinoma (HCC) Mg Hernandes MD [address] [place] [address] Phone: tel: fax: [facility] Medicine Oncology [facility] Floor 5 [place] [address] Phone: tel: fax: Referral ID Status Reason Start Date Expiration Date Visits Requested Visits Authorized [id number] Authorized Specialty Services Required 05/26/2025 06/25/2026 99 99 Question Answer Please select the performing region: [facility] (All Locations) [167] Please select the performing department: [facility] ONC ACB5 [[id number]] Is this referral for Breast Health Multi-Disciplinary Clinic? No Does the patient have a diagnosis of a Head and Neck cancer? No # of visits: 1 Comments Panc bx adenocarcinoma Encounter Details Date Type Department Care Team (Late st Contact Info) Description 05/26/2025 Results Follow-Up [facility] Medicine Gastroenterology [address] 2nd [address] [place] [address] Mg Hernandes MD [address] [place] [address] Surgical pathology Social History Tobacco Use Types [...] on file Legal Sex Female 9:06 AM KITCHEN AIDE Gender Identity Female 11/27/2018 8:55 AM KITCHEN AIDE Sexual Orientation Straight 07/13/2021 6: 23 PM [...] unspecified documented in this encounter Care Teams Child Care Team Lead Relationship Specialty Start Date End Date Christ Wesley MD [address] [facility] [address] [address] PCP - General Family Medicine 11/27/18 Mg Hernandes MD [address] [place] [address] Consulting Physician Internal Medicine 05/27/25 Sonia Escamilla MD [address] [place] [address] Consulting Physician Medical Oncology 05/27/25 documented as of this encounter
--- OUTSIDE RECORDS SUMMARY | 2025-05-31 08:21 | XMS_ITS | Encounter Summary ---
Author Organization [facility] Address [address] [place] [address] Phone Care Team Providers Care Comparative Sociology Professor Name Role Phone Christ Wesley MD Primary Care Provider Mg Hernandes MD Unavailable [phone] Sonia Escamilla MD Unavailable [phone] Encounter Details Date Type Department Care Team (Late st Contact Info) Description 04/30/2025 Orders Only [facility] Scanning, Provider Social History Tobacco Use Types Packs/Day Years Used Date Smoking Tobacco: Never Smokeless Tobacco: Never Comments Unknown Sex and Gender Information Value Date Recorded Sex Assigned at Not on file 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 Gender Identity Female 11/27/2018 8:55 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
--- OUTSIDE RECORDS SUMMARY | 2025-05-31 08:21 | XMS_ITS | Clinical Summary ---
Author Organization [facility] Address [address] [place] [address] Care Team Providers Care Washing Machine Operator Name Role Phone Christ Wesley MD Primary Care Provider [phone] Allergies Active Allergy Reactions Criticality Noted Date [...] on file Legal Sex Female 6:53 PM MEDICAL IMAGING SPECIALIST Gender Identity Not on file Sexual Orientation Not on file Last Filed Vital Signs Vital Sign Reading Time Taken Comments Blood Pressure 148/72 11/26/2023 7:03 PM MEDICAL IMAGING SPECIALIST Pulse 87 11/26/2023 7:03 PM MEDICAL IMAGING SPECIALIST Temperature 36.7 C (98 F) 11/26/2023 7:03 PM MEDICAL IMAGING SPECIALIST Respiratory Rate 16 11/26/2023 7:03 PM MEDICAL IMAGING SPECIALIST Oxygen Saturation 100% 11/26/2023 7:03 PM MEDICAL IMAGING SPECIALIST Inhaled Oxygen Concentration - - Weight 76.2 kg (168 lb) 11/26/2023 7:03 PM MEDICAL IMAGING SPECIALIST Height 167.6 cm (5' 6) 11/26/2023 7:03 PM MEDICAL IMAGING SPECIALIST Body Mass Index 27.12 11/26/2023 7:03 PM MEDICAL IMAGING SPECIALIST Plan of Treatment Health Maintenance Due Date [...] patient's age to complete this topic Insurance [facility] Care Teams Washing Machine Operator Relationship Specialty Start Date End Date Christ Wesley MD [address] [place] [address] PCP - General FAMILY PRACTICE 11/26/23
[2025-05-31 08:23] LABS: INR 1.2; Prothrombin Time 15.1 Seconds (11.1-14.7)
[2025-05-31 08:24] LABS: Partial Thromboplastin Time 27.7 Seconds (22.3-36.8)
[2025-05-31 08:31] LABS: Hemoglobin 6.0 g/dL (12.0-15.0)
[2025-05-31 08:32] LABS: Anisocytosis 1+; Hematocrit 18.5 % (37.0-47.0); Hypochromasia 2+; Polychromasia 1+; Schistocytes Occasional
[2025-05-31 08:46] LABS: Influenza A QL RT-PCR Negative (Negative); Influenza B QL RT-PCR Negative (Negative); RSV RNA, RT-PCR Negative (Negative); SARS-CoV-2 RNA PCR Negative (Negative)
[2025-05-31 09:18] LABS: Iron 39 ug/dL (37-170)
[2025-05-31 09:18] LABS: Lipase 846 U/L (23-300)
[2025-05-31 09:27] LABS: Percent Iron Saturation 13 % (20-50)
[2025-05-31 09:33] LABS: Add Urine Microscopic? NO; Appearance Urine Clear (Clear); Glucose Urine UA Negative (Negative); Leukocyte Esterase Ur Negative LEU/UL (Negative); Nitrate Urine Negative (Negative); Specific Grav Ur 1.004 (1.001-1.035)
[2025-05-31] MEDS: TUBING, BLOOD PLUM PUMP TUBING 1 EACH XX (10:04)
[2025-05-31] MEDS: SODIUM CHLORIDE 0.9% IV 250 ML 30 ML IV CONT (10:04)
[2025-05-31 10:28] LABS: Vitamin B12 > 1000.0 pg/mL (239-931)
[2025-05-31] MEDS: CEFEPIME 2 GM in SODIUM CHLORIDE 0.9% IV 50 ML 100 ML IVPB (12:14)
[2025-05-31 12:32] LABS: CRP 7.8 mg/dL (<1.0)
[2025-05-31] MEDS: metroNIDAZOLE 500 MG/ISO 100ML 500 MG/100 ML BAG 100 MG IVPB (12:33)
[2025-05-31] MEDS: PANTOPRAZOLE SODIUM IV 40 MG VIAL IV PUSH (12:42)
[2025-05-31] MEDS: OCTREOTIDE ACETATE 50 MCG/ML VIAL IV PUSH (13:20)
[2025-05-31] MEDS: METOCLOPRAMIDE HCL INJ 10 MG/2 ML VIAL IV PUSH (13:27)
== END 2025-05-31 15:33 | disposition short-term general hospital (02) ==
PROVIDERS: Emergency Provider Emergency Medicine; PCP Family Medicine
DX: D64.9 Anemia, unspecified (principal); E87.1 Hypo-osmolality and hyponatremia; C25.9 Malignant neoplasm of pancreas, unspecified; C78.7 Secondary malignant neoplasm of liver and intrahepatic bile duct; R94.31 Abnormal electrocardiogram [ECG] [EKG]
CPT/HCPCS: 36415; 36430; 74177; 80053; 81003; 82607; 82746; 83540; 83550; 83605; 83690; 85025; 85610; 85730; 86140; 86850; 86900; 86901; 86920; 87040; 87637; 93005; 96361; 96365; 96367; 96375; 99285; J0692; J1836; J2354; J2470; J2765; J7050; J7120; P9016; Q9967